=== PATIENT | female | born 1940 | race Hispanic/Latino ===

== ENCOUNTER 2018-05-06 07:58 | Day surgery (SDC) | payer MEDICARE ==
[2016-09-27 06:38] VITALS: BMI 20.7
[2018-05-06] MEDS ORDERED: Propofol 10 mg/ml Inj (20 ML) ONE ×2 (10:06→10:18)
[2018-05-06] MEDS ORDERED: ePHEDrine 50 mg/ml Inj ONE (11:08)
[2018-05-06] MEDS ORDERED: Sodium Chloride 0.9% 1,000 ML IV SCH (11:15)
[2018-05-06 11:51] VITALS: BP 127/56; PULSE 61; RESP 16; TEMP 97.9; O2SAT 99
== END 2018-05-06 12:26 | disposition home or self-care (01) ==
LOC: ENDO 07:58
PROVIDERS: ATTEND Specialist
DX: K63.5 Polyp of colon (principal); K57.30 Diverticulosis of large intestine without perforation or abscess without bleeding; K64.8 Other hemorrhoids
CPT/HCPCS: 45385; 88305; J2704; J3010; J7030; J7040

== ENCOUNTER 2018-11-12 21:22 | Inpatient (IN) | payer MEDICARE ==
[2018-11-12 21:52] VITALS: BMI 20.9
--- NOTE | 2018-11-12 22:28 | ED PDOC ---
Arrival/HPI - General Chief Complaint: Flu-like Symptoms Historian: Patient, Spouse - History of Present Illness Narrative History of Present Illness (Text): 11/12/18 22:28 Elicia Farris is a 78 year old female, whose past medical history includes diabetes, hypertension, cholecystectomy, asthma, and CAD with 2 cardiac stents, who presents to the Emergency department complaining of fever. Patient states she developed a fever tonight with associated lower abdominal pain and nausea. On arrival to Emergency department, patient temperature was 98.8F. Patient notes she was recently seen at her PMD's office for cough and was diagnosed with influenza. Patient denies any chest pain, shortness of breath, vomiting, diarrhea, urinary symptoms, back pain, neck pain, headache, dizziness, or any other complaints. PMD: Dr. Krishnan Symptom Onset: Gradual Symptom Course: Unchanged Activities at Onset: Light Context: Home Past Medical History - Provider Review Nursing Documentation Reviewed: Yes - Past Medical History Past Medical History: No Previous - Cardiac Hx Pacemaker: No - Pulmonary Hx Asthma: Yes - Neurological Hx Paralysis: No - Hematological/Oncological Hx Blood Transfusions: No - Musculoskeletal/Rheumatological Hx Musculoskeletal Disorders: Yes - Psychiatric Hx Emotional Abuse: No Hx Physical Abuse: No Hx Substance Use: No - Surgical History Hx Coronary Stent: Yes (x2) - Anesthesia Hx Anesthesia: Yes Hx Anesthesia Reactions: No Hx Malignant Hyperthermia: No - Suicidal Assessment Feels Threatened In Home Enviroment: No Family/Social History - Physician Review Nursing Documentation Reviewed: Yes Family/Social History: Unknown Family HX Smoking Status: Never Smoked Hx Alcohol Use: No Hx Substance Use: No Hx Substance Use Treatment: No Allergies/Home Meds Allergies/Adverse Reactions: Allergies codeine Allergy (Verified 11/12/18 21:52) RASH Home Medications: Home Meds Medication Instructions Recorded Confirmed Amlodipine Besylate [Norvasc] 5 mg PO QAM 04/23/15 11/12/18 Aspirin [Aspirin Chewable] 81 mg PO DAILY 04/23/15 11/12/18 Atorvastatin [Lipitor] 10 mg PO QPM 04/23/15 11/12/18 Fluticasone/Salmeterol [Advair 1 puff IH BID 04/23/15 11/12/18 500-50 Diskus] Albuterol Sulfate 0.63 mg NEB TID PRN 01/06/16 11/12/18 Furosemide [Lasix] 20 mg PO DAILY PRN 01/06/16 11/12/18 Linaclotide [Linzess] 290 mcg PO DAILY 01/06/16 11/12/18 Omeprazole Magnesium [Prilosec Otc] 20 mg PO DAILY 01/06/16 11/12/18 Bisacodyl [Ducolax] 5 mg PO DAILY PRN 09/27/16 11/12/18 Metoprolol Succinate 12.5 mg PO DAILY 09/27/16 11/12/18 Review of Systems - Physician Review All systems were reviewed & negative as marked: Yes - Review of Systems Constitutional: Fevers Eyes: Normal ENT: Normal Respiratory: Cough Cardiovascular: Normal Gastrointestinal: Abdominal Pain, Nausea. absent: Diarrhea, Vomiting Genitourinary Female: Normal. absent: Dysuria, Frequency, Hematuria, Urine Output Changes Musculoskeletal: Normal. absent: Back Pain, Neck Pain Skin: Normal. absent: Rash Neurological: Normal. absent: Headache, Dizziness Endocrine: Normal Hemo/Lymphatic: Normal Psychiatric: Normal Physical Exam Vital Signs Reviewed: Yes Vital Signs Temp Pulse Resp BP Pulse Ox 11/12/18 21:57 98.8 F 81 18 135/73 96 Temperature: Afebrile Blood Pressure: Normal Pulse: Regular Respiratory Rate: Normal Appearance: Positive for: Well-Appearing, Non-Toxic, Comfortable Pain Distress: None Mental Status: Positive for: Alert and Oriented X 3 - Systems Exam Head: Present: Atraumatic, Normocephalic Pupils: Present: PERRL Extroacular Muscles: Present: EOMI Conjunctiva: Present: Normal Mouth: Present: Moist Mucous Membranes Neck: Present: Normal Range of Motion Respiratory/Chest: Present: Clear to Auscultation, Good Air Exchange. No: Respiratory Distress, Accessory Muscle Use Cardiovascular: Present: Regular Rate and Rhythm, Normal S1, S2. No: Murmurs Abdomen: Present: Tenderness (Diffuse lower abdominal tenderness). No: Distention, Peritoneal Signs Back: Present: Normal Inspection Upper Extremity: Present: Normal Inspection. No: Cyanosis, Edema Lower Extremity: Present: Normal Inspection. No: Edema Neurological: Present: GCS=15, CN II-XII Intact, Speech Normal Skin: Present: Warm, Dry, Normal Color. No: Rashes Psychiatric: Present: Alert, Oriented x 3, Normal Insight, Normal Concentration Medical Decision Making ED Course and Treatment: 11/12/18 22:28 Impression: 78 year old female complaining of fever, abdominal pain, nausea, and cough. Plan: -- CT Abdomen and Pelvis with IV contrast -- EKG -- Chest X-ray -- Labs, cardiac enzymes, lipase -- Reassess and disposition Prior Visits: Notes and results from previous visits were reviewed. Progress Notes: Reviewed EKG, NSR at [address]-segment elevations or depressions, no T-wave inversions, normal intervals. 11/13/18 00:05 Chest X-ray reviewed, shows consolidation vs. atelectasis. 11/13/18 02:06 CT Abdomen and Pelvis reviewed: Interval appearance of diffuse inflammatory thickening of the mid aspect of the sigmoid with associated abnormal enhancement. Mild surrounding inflammatory fat stranding. Findings are suggestive of acute sigmoid diverticulitis. Suspected intramural phlegmon formation at the level of the mid sigmoid inflamed diverticula. No evidence of perforation. Fluid-filled proximal colon. Cholecystectomy. Bilateral basilar atelectatic pulmonary changes. Small sliding hiatal hernia. The liver is of uniform attenuation without mass or defect. There is no intra or extrahepatic biliary ductal dilatation. The spleen is normal. The pancreas is of normal contour and attenuation characteristics. There is no evidence of adrenal mass. Both kidneys demonstrate prompt and equal nephrograms. The kidneys are normal in size, shape and configuration. There is no evidence of renal or ureteral mass. No renal or ureteral calculi are identified. There is no hydroureter or hydronephrosis. No evidence for appendicitis. No evidence for small or large bowel obstruction. There is no evidence of abdominal ascites or lymphadenopathy. There is no evidence of intrinsic or extrinsic bladder mass. There is no pelvic ascites or lymphadenopathy. Images of the lung bases show no evidence of pleural or parenchymal mass. There are no pleural effusions. The bony structures are free of lytic or blastic lesions. IMPRESSION: Interval appearance of diffuse inflammatory thickening of the mid aspect of the sigmoid with associated abnormal enhancement. Mild surrounding inflammatory fat stranding. Findings are suggestive of acute sigmoid diverticulitis. Suspected intramural phlegmon formation at the level of the mid sigmoid inflamed diverticula. No evidence of perforation. Fluid-filled proximal colon. Cholecystectomy. Bilateral basilar atelectatic pulmonary changes. Small sliding hiatal hernia. Electronically signed on Nov 13, 2018 2:04:31 AM EST by: Phan Maher M.D., Certified by ABR, MSK, Neuroradiology 11/13/18 02:[address] Colby Antonio, who is aware and agrees with plan. Accepts pt in to hospitalist service. Pt will be admitted to [facility] for diverticulitis. vice president compliance notified. 11/13/18 03:07 - Lab Interpretations I have reviewed the lab results: Yes - RAD Interpretation Industrial Engineering Director: ED Physician, Radiologist - EKG Interpretation Interpreted by ED Physician: Yes Type: 12 lead EKG - Scribe Statement The provider has reviewed the documentation as recorded by the Veroiblázaro Pitts Provider Scribe Attestation: All medical record entries made by the Scribe were at my direction and personally dictated by me. I have reviewed the chart and agree that the record accurately reflects my personal performance of the history, physical exam, medical decision making, and the department course for this patient. I have also personally directed, reviewed, and agree with the discharge instructions and disposition. Disposition/Present on Arrival - Present on Arrival Any Indicators Present on Arrival: No History of DVT/PE: No History of Uncontrolled Diabetes: No Urinary Catheter: No History of Decub. Ulcer: No History Surgical Site Infection Following: None - Disposition Have Diagnosis and Disposition been Completed?: Yes Diagnosis: Diverticulitis Disposition: HOSPITALIZED Disposition Time: 02:28 Patient Plan: Admission Patient Problems: Current Active Problems Problem Status Onset Diverticulitis Acute Condition: STABLE
[2018-11-12 23:29] LABS: HEMOGLOBIN 11.2 g/dL (12.0-16.0); MEAN CELL VOLUME 89.1 fl (80.0-105.0); MEAN CORPUSCULAR HEMOGLOBIN 30.4 pg (25.0-35.0); MEAN CORPUSCULAR HGB CONC 34.1 g/dl (31.0-37.0); MEAN PLATELET VOLUME 8.2 fl (7.0-11.0); RBC 3.68 10^6/uL (3.5-6.1); RED CELL DISTRIBUTION WIDTH 12.8 % (11.5-14.5); WHITE BLOOD COUNT 6.2 10^3/uL (4.5-11.0)
[2018-11-12 23:46] LABS: ALB/GLOB RATIO 1.2 (1.1-1.8); ALBUMIN 3.5 g/dL (3.0-4.8); ALT/SGPT 33 U/L (7-56); AST/SGOT 31 U/L (14-36); BLOOD UREA NITROGEN 11 mg/dL (7-21); CALCIUM 7.9 mg/dL (8.4-10.5); GFR NON-AFRICAN AMERICAN > 60; LIPASE 97 U/L (23-300)
[2018-11-12] MEDS ORDERED: Iohexol 350 MG/100 ML VIAL ONE (23:54)
[2018-11-12 23:57] LABS: TROPONIN I < 0.01 ng/mL
[2018-11-13] MEDS ORDERED: cefTRIAXone 1 gm 1 GM/100 ML BAG IV STA (02:12)
[2018-11-13] MEDS ORDERED: metroNIDAZOLE IV 500 mg/100 ml 500 MG/100 ML BAG IVPB STA (02:13)
[2018-11-13] MEDS ORDERED: Sodium Chloride 0.9% 1,000 ML IV SCH (03:15)
[2018-11-13] MEDS: Insulin Lispro (humaLOG) LOW Coverage SC SCH ×2 (03:57→09:30)
--- NOTE | 2018-11-13 04:59 | CP.PCM.HP ---
History of Present Illness - History of Present Illness History of Present Illness: Glenn Zamudio, PGY-1 Medicine H&P for Dr. Antonio G: CC: Fever and lower abd pain Pt is a 78 yo F with pmhx of DM, HTN, Asthma and CAD s/p 2 stents who presents to the ED for 2 day hx of fevers and lower abd pain. She states that she noticed the pain begin about 3-4 days ago when she was resting at home and thought that the pain would go away by itself. She then noticed that the pain was worsening and last night she had 5+ bouts of vomiting which was non-bloody, non-bilious. She states that she also noted that the abd pain was getting much worse and was rated at a 9/10 at home before she presented to the ED. She describes the pain as being crampy and without further radiation other than diffuse lower abd pain. Pt reports that this is the first time she has ever had pain like this in the past and has no recollection of diverticulitis episodes in the past. At this time the pt admits to fevers, chills, nausea, vomiting, diffuse lower abd pain, dry cough and dysuria. She denies chest pain, palpitations, SOB, leg swelling, constipation, diarrhea, melena, hematochezia. Pmhx: DM, HTN, Asthma and CAD s/p 2 stents Pshx: Ana All: Codiene - Rash Social: Denies any tobacco use, denies etoh or illicit drug use Fam: Dad: Liver ca, Brother: Ulcers PMD: [facility] Pharm: [facility] Present on Admission - Present on Admission Any Indicators Present on Admission: No Review of Systems - Review of Systems Review of Systems: 12 point ROS was reviewed and negative except for noted in HPI above. Past Patient History - Past Social History Smoking Status: Never Smoked - CARDIAC Hx Pacemaker: No - PULMONARY Hx Asthma: Yes - NEUROLOGICAL Hx Paralysis: No - HEMATOLOGICAL/ONCOLOGICAL Hx Blood Transfusions: No - MUSCULOSKELETAL/RHEUMATOLOGICAL Hx Musculoskeletal Disorders: Yes - PSYCHIATRIC Hx Emotional Abuse: No Hx Physical Abuse: No Hx Substance Use: No - SURGICAL HISTORY Hx Coronary Stent: Yes (x2) - ANESTHESIA Hx Anesthesia: Yes Hx Anesthesia Reactions: No Hx Malignant Hyperthermia: No Meds Allergies/Adverse Reactions: Allergies Allergy/AdvReac Type Severity Reaction Status Date / Time codeine Allergy RASH Verified 11/12/18 21:52 Physical Exam - Constitutional Appears: Well, Non-toxic, No Acute Distress - Head Exam Head Exam: ATRAUMATIC, NORMAL INSPECTION, NORMOCEPHALIC - Eye Exam Eye Exam: EOMI, Normal appearance, PERRL - Respiratory Exam Respiratory Exam: Clear to Auscultation Bilateral, NORMAL BREATHING PATTERN. absent: Accessory Muscle Use, Decreased Breath Sounds, Rales, Rhonchi, Wheezes, Respiratory Distress, Stridor - Cardiovascular Exam Cardiovascular Exam: RRR, +S1, +S2. absent: Gallop, Rubs - GI/Abdominal Exam GI & Abdominal Exam: Hypoactive Bowel Sounds, Tenderness (present diffiusely in lower abdomen, worse in the L than the R). absent: Distended, Firm, Guarding - Extremities Exam Extremities exam: Positive for: normal capillary refill, normal inspection, pedal pulses present. Negative for: pedal edema, tenderness - Back Exam Back exam: NORMAL INSPECTION. absent: CVA tenderness (L), CVA tenderness (R) - Neurological Exam Neurological exam: Alert, Oriented x3 - Psychiatric Exam Psychiatric exam: Normal Affect, Normal Mood - Skin Skin Exam: Dry, Intact, Normal Color Results - Vital Signs Recent Vital Signs: Last Vital Signs Temp 98.8 F 11/12/18 21:57 Pulse 81 11/12/18 21:57 Resp 18 11/12/18 21:57 BP 135/73 11/12/18 21:57 Pulse Ox 96 11/12/18 21:57 - Labs Result Diagrams: 11/12/18 23:15 11/12/18 23:15 Labs: Laboratory Results - last 24 hr 11/12/18 11/12/18 11/12/18 23:15 23:15 23:15 WBC 6.2 RBC 3.68 Hgb 11.2 L Hct 32.8 L MCV 89.1 MCH 30.4 MCHC 34.1 RDW 12.8 Plt Count 193 MPV 8.2 Sodium 124 L Potassium 3.8 Chloride 93 L Carbon Dioxide 25 Anion Gap 10 BUN 11 Creatinine 0.5 L Est GFR ( Amer) > 60 Est GFR (Non-Af Amer) > 60 Random Glucose 117 H Calcium 7.9 L Total Bilirubin 0.5 AST 31 ALT 33 Alkaline Phosphatase 54 Lactate Dehydrogenase 378 Total Creatine Kinase 67 Troponin I < 0.01 Total Protein 6.4 Albumin 3.5 Globulin 2.9 Albumin/Globulin Ratio 1.2 Lipase 97 Influenza Typ A,B (EIA) Negative for flu a/b Assessment & Plan - Assessment and Plan (Free Text) Assessment: Pt is a 78 yo F with pmhx of DM, HTN, Asthma and CAD s/p 2 stents who presents to the ED for 2 day hx of fevers and lower abd pain. CT abd/pelvis done in ED: prelim read showed Interval appearance of diffuse inflammatory thickening of the mid aspect of the sigmoid with associated abnormal enhancement. Mild surrounding inflammatory fat stranding. Findings are suggestive of acute sigmoid diverticulitis. Suspected intramural phlegmon formation at the level of the mid sigmoid inflamed diverticula. No evidence of perforation. Pts VSS and has no acute Plan: 1. Diverticulitis: - CT abd/pelvis: prelim read showed Interval appearance of diffuse inflammatory thickening of the mid aspect of the sigmoid with associated abnormal enhancement. Mild surrounding inflammatory fat stranding. Findings are suggestive of acute sigmoid diverticulitis. Suspected intramural phlegmon formation at the level of the mid sigmoid inflamed diverticula. No evidence of perforation - VSS, no elevated WBC - NPO - IVF NS @ 100/hr - Flagyl - Rocephin - Zofran q6 PRN - f/u blood cultures 2. Hx of HTN: - Cont home toprol 12.5qd and norvasc 3. Hx of CAD s/p 2 stents: - Cont home ASA 4. Hx of HLD: - Cont home lipitor 5. Hx of asthma: - cont home brovana - Duonebs q6 prn - Budesonide 6. PPx: - GI: Protonix 40 IVP - DVT: SCDs
--- NOTE | 2018-11-13 05:40 | CP.PCM.CON ---
History of Present Illness - History of Present Illness History of Present Illness: Surgery Consult Note- Dr. Lancaster Reason for consult: Diverticulitis 78F pmhx significant for DM, HTN, CAD, chronic constipation Anemia w/ Iron infusions, Breast Ca s/p b/l mastectomy presents to [facility] [place] ED w/ sharp, crampy lower abdominal pain localized to the left lower quadrant that started 4 days ago that has been getting progressively worse. Admits associated nausea and non- bloody, non-bilious vomiting yesterday. She has not had any previous episodes of pain like this in the past. ED workup w/ CT scan shows Diverticulitis with phelgmanous changes, no abscess. Surgery was subsequently consulted for diverticulitis. Admits to subjective fevers, and loose bowel movements. denies, changes in urinary habits, foreign travel, chest pain, shortness of breath, blood in stool, bright red blood per rectum. Of note, for chronic constipation patient takes miralax and and oral pill that she cannot remember, and will occasional give herself enemas. Last enema given was 2 days ago. currently passing flatus PMH: DM, HTN, Chronic constipation, Anemia w/ Iron infusions, Asthma, CAD s/p 2 stents PSH: Cholecystectomy, b/l mastectomy, cardiac stents x2 ALL: Codiene - Rash Socialjx: Denies any tobacco, etoh, recreational drug use FH: Dad: Liver ca, Brother: Ulcers PMD: [facility] Review of Systems - Review of Systems All systems: reviewed and no additional remarkable complaints except - Constitutional Constitutional: As Per HPI Past Patient History - Past Social History Smoking Status: Never Smoked - CARDIAC Hx Pacemaker: No - PULMONARY Hx Asthma: Yes - NEUROLOGICAL Hx Paralysis: No - HEMATOLOGICAL/ONCOLOGICAL Hx Blood Transfusions: No - MUSCULOSKELETAL/RHEUMATOLOGICAL Hx Musculoskeletal Disorders: Yes - PSYCHIATRIC Hx Emotional Abuse: No Hx Physical Abuse: No Hx Substance Use: No - SURGICAL HISTORY Hx Coronary Stent: Yes (x2) - ANESTHESIA Hx Anesthesia: Yes Hx Anesthesia Reactions: No Hx Malignant Hyperthermia: No Meds Allergies/Adverse Reactions: Allergies Allergy/AdvReac Type Severity Reaction Status Date / Time codeine Allergy RASH Verified 11/12/18 21:52 - Medications Medications: Current Medications Albuterol/Ipratropium (Duoneb 3 Mg/0.5 Mg (3 Ml) Ud) 3 ml IH Q6H PRN PRN Reason: Shortness of Breath Amlodipine Besylate (Norvasc) 5 mg PO QAM [facility] Arformoterol Tartrate (Brovana) 15 mcg IH [id number] [facility] Aspirin (Aspirin Chewable) 81 mg PO DAILY [facility] Atorvastatin Calcium (Lipitor) 10 mg PO QPM [facility] Budesonide (Pulmicort Respules) 1 mg IH [id number] [facility] Metronidazole (Flagyl) 500 mg in 100 mls @ 100 mls/hr IVPB Q8 [facility]; Protocol Ceftriaxone Sodium (Rocephin 1 Gram Ivpb) 1 gm in 100 mls @ 100 mls/hr IVPB DAILY [facility]; Protocol Sodium Chloride (Sodium Chloride 0.9%) 1,000 mls @ 100 mls/hr IV .Q10H [facility] Last Admin: 11/13/18 03:54 Dose: 100 mls/hr Insulin Human Lispro (Humalog Low) 0 units SC Q6H [facility]; Protocol Last Admin: 11/13/18 03:57 Dose: Not Given Metoprolol Succinate (Toprol Xl) 12.5 mg PO DAILY [facility] Ondansetron HCl (Zofran Inj) 4 mg IVP Q6H PRN PRN Reason: Nausea/Vomiting Pantoprazole Sodium (Protonix Inj) 40 mg IVP DAILY [facility] Physical Exam - Constitutional Appears: Non-toxic, No Acute Distress - Head Exam Head Exam: ATRAUMATIC - Eye Exam Eye Exam: EOMI. absent: Scleral icterus - ENT Exam ENT Exam: Mucous Membranes Moist - Respiratory Exam Respiratory Exam: NORMAL BREATHING PATTERN. absent: Accessory Muscle Use, Respiratory Distress - Cardiovascular Exam Cardiovascular Exam: REGULAR RHYTHM, +S1, +S2. absent: Bradycardia, Tachycardia - GI/Abdominal Exam GI & Abdominal Exam: Soft, Tenderness (Tenderness to deep palpation in LLQ). absent: Distended, Firm, Guarding, Hernia - Rectal Exam Additional comments: Digital Rectal Exam: No stool palpated in rectal vault. External hemorrhoids noted at right posterior. bedside occult blood negative, no edy blood - Extremities Exam Extremities exam: Positive for: normal inspection. Negative for: calf tenderness - Back Exam Additional comments: Chest mastectomy incision C/D/I - Neurological Exam Neurological exam: Alert, Oriented x3 - Psychiatric Exam Psychiatric exam: Normal Affect - Skin Skin Exam: Intact, Warm Results - Vital Signs Recent Vital Signs: Last Vital Signs Temp 98.8 F 11/12/18 21:57 Pulse 81 11/12/18 21:57 Resp 18 11/12/18 21:57 BP 135/73 11/12/18 21:57 Pulse Ox 96 11/12/18 21:57 - Labs Result Diagrams: 11/13/18 06:50 11/13/18 06:50 Labs: Laboratory Results - last 24 hr 11/12/18 11/12/18 11/12/18 23:15 23:15 23:15 WBC 6.2 RBC 3.68 Hgb 11.2 L Hct 32.8 L MCV 89.1 MCH 30.4 MCHC 34.1 RDW 12.8 Plt Count 193 MPV 8.2 Sodium 124 L Potassium 3.8 Chloride 93 L Carbon Dioxide 25 Anion Gap 10 BUN 11 Creatinine 0.5 L Est GFR ( Amer) > 60 Est GFR (Non-Af Amer) > 60 Random Glucose 117 H Calcium 7.9 L Total Bilirubin 0.5 AST 31 ALT 33 Alkaline Phosphatase 54 Lactate Dehydrogenase 378 Total Creatine Kinase 67 Troponin I < 0.01 Total Protein 6.4 Albumin 3.5 Globulin 2.9 Albumin/Globulin Ratio 1.2 Lipase 97 Influenza Typ A,B (EIA) Negative for flu a/b Assessment & Plan - Assessment and Plan (Free Text) Assessment: 78F w/ first episode of sigmoid diverticulitis Plan: - Analgesia PRN - NPO; bowel rest - IVF w/ NS - IVAbx - serial abdominal exams - further recs per Dr. Lancaster Surgical attending [facility] PGY2
[2018-11-13] MEDS: metroNIDAZOLE IV 500 mg/100 ml 500 MG/100 ML BAG IVPB SCH ×3 (06:30→21:26)
[2018-11-13 07:12] LABS: BASO # 0.01 K/mm3 (0.0-2.0); BASO % 0.2 % (0.0-3.0); GRAN # 3.15 (1.4-6.5); GRAN % 69.9 % (50.0-68.0); HEMOGLOBIN 11.5 g/dL (12.0-16.0); LYMPH # 0.7 (1.2-3.4); LYMPH % 15.3 % (22.0-35.0); MEAN CELL VOLUME 88.3 fl (80.0-105.0); MEAN CORPUSCULAR HEMOGLOBIN 29.3 pg (25.0-35.0); MEAN CORPUSCULAR HGB CONC 33.2 g/dl (31.0-37.0); MEAN PLATELET VOLUME 8.2 fl (7.0-11.0); MONO # 0.7 (0.1-0.6); MONO % 14.6 % (1.0-6.0); RBC 3.92 10^6/uL (3.5-6.1); RED CELL DISTRIBUTION WIDTH 12.9 % (11.5-14.5); WHITE BLOOD COUNT 4.5 10^3/uL (4.5-11.0)
[2018-11-13 07:24] LABS: ALB/GLOB RATIO 1.2 (1.1-1.8); ALBUMIN 3.4 g/dL (3.0-4.8); ALT/SGPT 32 U/L (7-56); AST/SGOT 25 U/L (14-36); BLOOD UREA NITROGEN 9 mg/dL (7-21); GFR NON-AFRICAN AMERICAN > 60
[2018-11-13 07:56] LABS: IRON 22 ug/dL (45-180)
[2018-11-13] MEDS ORDERED: Arformoterol 15 mcg/2 ml Inh Sol IH SCH (08:00)
[2018-11-13 08:05] LABS: % IRON SATURATION 10 % (20-55); TOTAL IRON BINDING CAPACITY 231 ug/dL (265-497)
--- NOTE | 2018-11-13 08:19 | CT ---
Date of service: 11/13/2018 PROCEDURE: CT Abdomen and Pelvis with contrast HISTORY: Abdominal pain Relevant medical history: Breast carcinoma. COMPARISON: 10/27/2014 CT abdomen and pelvis. 01/09/2016 abdominal ultrasound TECHNIQUE: Intravenous contrast dose: 100 cc Omnipaque 350 Radiation dose: Total exam DLP = 228.56 mGy-cm. This CT exam was performed using one or more of the following dose reduction techniques: Automated exposure control, adjustment of the mA and/or kV according to patient size, and/or use of iterative reconstruction technique. FINDINGS: LOWER THORAX: Consolidative changes primarily affecting visible right lower lobe. Less pronounced changes likely atelectasis left base. LIVER: Unremarkable. No gross lesion or ductal dilatation. GALLBLADDER AND BILE DUCTS: Status post cholecystectomy. No abnormality is seen in the gallbladder fossa. PANCREAS: Unremarkable. No gross lesion or ductal dilatation. SPLEEN: Unremarkable. ADRENALS: Unremarkable. No mass. KIDNEYS AND URETERS: Unremarkable. No hydronephrosis. No solid mass. VASCULATURE: Unremarkable. No aortic aneurysm. No atherosclerotic calcification or mural plaque present. BOWEL: Segmental inflammatory changes affecting the sigmoid colon, sparing the rectum. The descending colon is also uninvolved. The presence of severe diverticular disease this likely represents acute diverticulitis. Less likely infectious/inflammatory colitis. Right yady colon is fluid-filled. Unremarkable small bowel. APPENDIX: Normal appendix. PERITONEUM: Unremarkable. No free fluid. No free air. LYMPH NODES: Unremarkable. No enlarged lymph nodes. BLADDER: Unremarkable. REPRODUCTIVE: Unremarkable. BONES: No acute fracture. OTHER FINDINGS: None. IMPRESSION: Acute inflammatory changes limited to the sigmoid colon. In the presence of diverticulosis this likely represents acute diverticulitis. Segmental colitis should also be considered. All Additional benign and/or incidental findings described above. Concordant results (preliminary interpretation) provided by [facility]. Procedure Completed: 00:51. Preliminary Report: Dictated and Authenticated: 02:04. Final Interpretation: 08:15.
--- NOTE | 2018-11-13 09:26 | RAD ---
Date of service: 11/12/2018 HISTORY: fever COMPARISON: 01/06/2018 FINDINGS: LUNGS: Linear atelectasis at the right lung base. The lungs are otherwise clear PLEURA: No significant pleural effusion identified, no pneumothorax apparent. CARDIOVASCULAR: No aortic atherosclerotic calcification present. Normal cardiac size. No pulmonary vascular congestion. OSSEOUS STRUCTURES: No significant abnormalities. VISUALIZED UPPER ABDOMEN: Normal. OTHER FINDINGS: None. IMPRESSION: No active disease.
[2018-11-13] MEDS: Metoprolol Succinate 25 mg XL Tab PO SCH (10:06)
[2018-11-13] MEDS: cefTRIAXone 1 gm 1 GM/100 ML BAG IVPB SCH (10:08)
[2018-11-13] MEDS: Dextrose 5%/0.9% NS 1,000 ML IV SCH ×2 (10:10→21:26)
[2018-11-13] MEDS ORDERED: Dextrose 50% SYRINGE Inj (50 ml) IV PRN (11:08)
--- NOTE | 2018-11-13 11:26 | CP.PCM.APN ---
Subjective - Date & Time of Evaluation Date of Evaluation: 11/13/18 Time of Evaluation: 11:15 - Subjective Subjective: Pt seen and examined at bedside. Still c/o abdominal pain, worse on light palpation. Denies nausea, vomiting or diarrhea. Objective - Vital Signs/Intake and Output Vital Signs (last 24 hours): Temp Pulse Resp BP Pulse Ox 100 F H 81 18 134/73 96 11/13/18 06:00 11/13/18 10:07 11/13/18 06:00 11/13/18 10:07 11/13/18 06:00 - Medications Medications: Current Medications Albuterol/Ipratropium (Duoneb 3 Mg/0.5 Mg (3 Ml) Ud) 3 ml IH Q6H PRN PRN Reason: Shortness of Breath Amlodipine Besylate (Norvasc) 5 mg PO QAM [facility] Last Admin: 11/13/18 10:07 Dose: 5 mg Arformoterol Tartrate (Brovana) 15 mcg IH [id number] [facility] Aspirin (Aspirin Chewable) 81 mg PO DAILY [facility] Last Admin: 11/13/18 10:06 Dose: 81 mg Atorvastatin Calcium (Lipitor) 10 mg PO QPM [facility] Budesonide (Pulmicort Respules) 1 mg IH [id number] [facility] Dextrose (Dextrose 50% Inj) 0 ml IV STAT PRN; Protocol PRN Reason: Hypoglycemia Protocol Metronidazole (Flagyl) 500 mg in 100 mls @ 100 mls/hr IVPB Q8 [facility]; Protocol Last Admin: 11/13/18 06:30 Dose: Not Given Ceftriaxone Sodium (Rocephin 1 Gram Ivpb) 1 gm in 100 mls @ 100 mls/hr IVPB DAILY [facility]; Protocol Last Admin: 11/13/18 10:08 Dose: 100 mls/hr Dextrose/Sodium Chloride (Dextrose 5%/0.9% Ns 1000 Ml) 1,000 mls @ 80 mls/hr IV .[id number] [facility] Last Admin: 11/13/18 10:10 Dose: 80 mls/hr Dextrose (Dextrose 5% In Water 1000 Ml) 1,000 mls @ 0 mls/hr IV .Q0M PRN; Protocol PRN Reason: Hypoglycemia Protocol Insulin Human Regular (Humulin R Low) 0 units SC ACHS [facility]; Protocol Metoprolol Succinate (Toprol Xl) 12.5 mg PO DAILY [facility] Last Admin: 11/13/18 10:06 Dose: 12.5 mg Ondansetron HCl (Zofran Inj) 4 mg IVP Q6H PRN PRN Reason: Nausea/Vomiting Pantoprazole Sodium (Protonix Inj) 40 mg IVP DAILY [facility] Last Admin: 11/13/18 10:08 Dose: 40 mg - Labs Labs: 11/13/18 06:50 11/13/18 06:50 - Constitutional Appears: Well, No Acute Distress - Head Exam Head Exam: ATRAUMATIC - Eye Exam Eye Exam: Normal appearance - ENT Exam ENT Exam: Normal Exam - Neck Exam Neck Exam: Full ROM - Respiratory Exam Respiratory Exam: Clear to Ausculation Bilateral, NORMAL BREATHING PATTERN - Cardiovascular Exam Cardiovascular Exam: REGULAR RHYTHM, +S1, +S2 - GI/Abdominal Exam GI & Abdominal Exam: Tenderness - Rectal Exam Rectal Exam: Deferred - Extremities Exam Extremities Exam: Normal Inspection - Neurological Exam Neurological Exam: Alert, Awake, Oriented x3 Assessment and Plan - Assessment and Plan (Free Text) Assessment: pt is a 78 year old female, with pmhx of diabetes, hypertension, cholecy stectomy, asthma, and CAD with 2 cardiac stents who presented to ED c/o fever. Patient states she developed a fever tonight with associated lower abdominal pain and nausea. In ED, her temperature was 98.8. She is currently admitted and being treated for diverticulitis. Impressions Abdomen/Pelvis CT 11/12/18 22:49 IMPRESSION: Acute inflammatory changes limited to the sigmoid colon. In the presence of diverticulosis this likely represents acute diverticulitis. Segmental colitis should also be considered. All Additional benign and/or incidental findings described above. Concordant results (preliminary interpretation) provided by RANDY ARANDA. Procedure Completed: 00:51. Preliminary Report: Dictated and Authenticated: 02:04. Final Interpretation: 08:15. Chest X-Ray 11/12/18 23:02 IMPRESSION: No active disease. Plan: NPO diet Flagyl/Rocephin IV GI, Surgery and ID on consult Meds per MAR Will continue to follow
[2018-11-13] MEDS: Insulin Reg-LOW-Coverage SC SCH ×2 (12:00→17:29)
--- NOTE | 2018-11-13 12:19 | CARD ---
APPROVED REPORT Date of service: 11/12/2018 EKG Measurement Heart [id number] <Conclusion> Normal sinus rhythm Normal ECG
[2018-11-13 13:04] LABS: FOLATE 15.7 ng/mL
[2018-11-13] MEDS: Budesonide 0.5 mg/2 ml Inhal Susp UD IH SCH ×2 (13:53→21:27)
--- NOTE | 2018-11-13 14:08 | CP.PCM.CON ---
History of Present Illness - History of Present Illness History of Present Illness: 78 year old female with PMH of DM, asthma, CAD S/P PCI came in to [facility] complaining of 2 days of fever and chills initially and then last night started having abdominal pain. She also started having nausea and vomiting. She denies diarrhea, no hematochezia or melena. She also denies headache or dizziness, no sore throat, has dry cough, no rhinorrhea, had some body aches, no dysuria, no dysphagia, no chest pain or palpitations, no blurring of vision. Apparently she was seen by a doctor covering for her PMD and was diagnosed to have Influenza. CT A/P done here is showing diverticulitis. Infectious diseases consult is requested to further evaluate and manage. Review of Systems - Review of Systems All systems: reviewed and no additional remarkable complaints except (as per HPI) Past Patient History - Past Social History Smoking Status: Never Smoked - CARDIAC Hx Pacemaker: No - PULMONARY Hx Asthma: Yes - NEUROLOGICAL Hx Paralysis: No - HEMATOLOGICAL/ONCOLOGICAL Hx Blood Transfusions: No - MUSCULOSKELETAL/RHEUMATOLOGICAL Hx Musculoskeletal Disorders: Yes - PSYCHIATRIC Hx Emotional Abuse: No Hx Physical Abuse: No Hx Substance Use: No - SURGICAL HISTORY Hx Coronary Stent: Yes (x2) - ANESTHESIA Hx Anesthesia: Yes Hx Anesthesia Reactions: No Hx Malignant Hyperthermia: No Meds Allergies/Adverse Reactions: Allergies Allergy/AdvReac Type Severity Reaction Status Date / Time codeine Allergy RASH Verified 11/12/18 21:52 - Medications Medications: Current Medications Albuterol/Ipratropium (Duoneb 3 Mg/0.5 Mg (3 Ml) Ud) 3 ml IH Q6H PRN PRN Reason: Shortness of Breath Amlodipine Besylate (Norvasc) 5 mg PO QAM [facility] Last Admin: 11/13/18 10:07 Dose: 5 mg Arformoterol Tartrate (Brovana) 15 mcg IH [id number] [facility] Aspirin (Aspirin Chewable) 81 mg PO DAILY [facility] Last Admin: 11/13/18 10:06 Dose: 81 mg Atorvastatin Calcium (Lipitor) 10 mg PO QPM [facility] Budesonide (Pulmicort Respules) 1 mg IH [id number] [facility] Dextrose (Dextrose 50% Inj) 0 ml IV STAT PRN; Protocol PRN Reason: Hypoglycemia Protocol Metronidazole (Flagyl) 500 mg in 100 mls @ 100 mls/hr IVPB Q8 [facility]; Protocol Last Admin: 11/13/18 06:30 Dose: Not Given Ceftriaxone Sodium (Rocephin 1 Gram Ivpb) 1 gm in 100 mls @ 100 mls/hr IVPB DAILY [facility]; Protocol Last Admin: 11/13/18 10:08 Dose: 100 mls/hr Dextrose/Sodium Chloride (Dextrose 5%/0.9% Ns 1000 Ml) 1,000 mls @ 80 mls/hr IV .[id number] [facility] Last Admin: 11/13/18 10:10 Dose: 80 mls/hr Dextrose (Dextrose 5% In Water 1000 Ml) 1,000 mls @ 0 mls/hr IV .Q0M PRN; Protocol PRN Reason: Hypoglycemia Protocol Insulin Human Regular (Humulin R Low) 0 units SC ACHS [facility]; Protocol Metoprolol Succinate (Toprol Xl) 12.5 mg PO DAILY [facility] Last Admin: 11/13/18 10:06 Dose: 12.5 mg Ondansetron HCl (Zofran Inj) 4 mg IVP Q6H PRN PRN Reason: Nausea/Vomiting Pantoprazole Sodium (Protonix Inj) 40 mg IVP DAILY [facility] Last Admin: 11/13/18 10:08 Dose: 40 mg Physical Exam - Constitutional Appears: No Acute Distress, Chronically Ill - Head Exam Head Exam: NORMAL INSPECTION - ENT Exam ENT Exam: Mucous Membranes Moist - Neck Exam Neck exam: Negative for: Lymphadenopathy, Meningismus - Respiratory Exam Respiratory Exam: Decreased Breath Sounds. absent: Rales - Cardiovascular Exam Cardiovascular Exam: +S1, +S2 - GI/Abdominal Exam GI & Abdominal Exam: Soft, Tenderness (left lower quadrant). absent: Distended, Firm, Guarding, Rebound, Rigid Results - Vital Signs Recent Vital Signs: Last Vital Signs Temp 100 F H 11/13/18 06:00 Pulse 81 11/13/18 10:07 Resp 18 11/13/18 06:00 BP 134/73 11/13/18 10:07 Pulse Ox 96 11/13/18 06:00 - Labs Result Diagrams: 11/13/18 06:50 11/13/18 06:50 Labs: Laboratory Results - last 24 hr 11/12/18 11/12/18 11/12/18 23:15 23:15 23:15 WBC 6.2 RBC 3.68 Hgb 11.2 L Hct 32.8 L MCV 89.1 MCH 30.4 MCHC 34.1 RDW 12.8 Plt Count 193 MPV 8.2 Gran % Lymph % (Auto) Ferry % (Auto) Eos % (Auto) Baso % (Auto) Gran # Lymph # (Auto) Ferry # (Auto) Eos # (Auto) Baso # (Auto) Retic Count Sodium 124 L Potassium 3.8 Chloride 93 L Carbon Dioxide 25 Anion Gap 10 BUN 11 Creatinine 0.5 L Est GFR ( Amer) > 60 Est GFR (Non-Af Amer) > 60 POC Glucose (mg/dL) Random Glucose 117 H Calcium 7.9 L Phosphorus Magnesium Iron TIBC % Saturation Transferrin Ferritin Total Bilirubin 0.5 AST 31 ALT 33 Alkaline Phosphatase 54 Lactate Dehydrogenase 378 Total Creatine Kinase 67 Troponin I < 0.01 Total Protein 6.4 Albumin 3.5 Globulin 2.9 Albumin/Globulin Ratio 1.2 Lipase 97 Influenza Typ A,B (EIA) Negative for flu a/b 11/13/18 11/13/18 11/13/18 03:56 06:50 06:50 WBC RBC Hgb Hct MCV MCH MCHC RDW Plt Count MPV Gran % Lymph % (Auto) Ferry % (Auto) Eos % (Auto) Baso % (Auto) Gran # Lymph # (Auto) Ferry # (Auto) Eos # (Auto) Baso # (Auto) Retic Count Sodium 130 L Potassium 3.7 Chloride 98 Carbon Dioxide 25 Anion Gap 10 BUN 9 Creatinine 0.5 L Est GFR ( Amer) > 60 Est GFR (Non-Af Amer) > 60 POC Glucose (mg/dL) 103 Random Glucose 96 Calcium 8.0 L Phosphorus 2.6 Magnesium 2.2 Iron 22 L TIBC 231 L % Saturation 10 L Transferrin Ferritin 519.0 Total Bilirubin 0.5 AST 25 ALT 32 Alkaline Phosphatase 55 Lactate Dehydrogenase Total Creatine Kinase Troponin I Total Protein 6.4 Albumin 3.4 Globulin 3.0 Albumin/Globulin Ratio 1.2 Lipase Influenza Typ A,B (EIA) 11/13/18 11/13/18 06:50 06:50 WBC 4.5 D RBC 3.92 Hgb 11.5 L Hct 34.6 L MCV 88.3 MCH 29.3 MCHC 33.2 RDW 12.9 Plt Count 193 MPV 8.2 Gran % 69.9 H Lymph % (Auto) 15.3 L Ferry % (Auto) 14.6 H Eos % (Auto) 0.0 L Baso % (Auto) 0.2 Gran # 3.15 Lymph # (Auto) 0.7 L Ferry # (Auto) 0.7 H Eos # (Auto) 0.0 Baso # (Auto) 0.01 Retic Count 0.84 Sodium Potassium Chloride Carbon Dioxide Anion Gap BUN Creatinine Est GFR ( Amer) Est GFR (Non-Af Amer) POC Glucose (mg/dL) Random Glucose Calcium Phosphorus Magnesium Iron TIBC % Saturation Transferrin 162.81 L Ferritin Total Bilirubin AST ALT Alkaline Phosphatase Lactate Dehydrogenase Total Creatine Kinase Troponin I Total Protein Albumin Globulin Albumin/Globulin Ratio Lipase Influenza Typ A,B (EIA) Assessment & Plan - Assessment and Plan (Free Text) Plan: Assessment Sepsis due to acute sigmoid diverticulitis R/O systemic viral illness with Influenza DM asthma CAD S/P PCI Plan started Rocephin and Flagyl and follow up blood cx reviewed CT A/P - monitor clinical response will start Tamiflu to complete 5 days of therapy
--- NOTE | 2018-11-13 15:07 | CON ---
DATE: 11/13/2018 GASTROENTEROLOGY CONSULTATION REQUESTING PHYSICIAN: Allegra Leger MD REASON FOR CONSULTATION: I have been asked to see this 78-year-old female with a known history of breast cancer, diverticulosis, chronic constipation, coronary artery disease, who comes to the hospital with a 4-day history of left lower quadrant abdominal pain. CT scan of the abdomen shows sigmoid diverticulitis. There is no evidence of abscess or fluid collection. The patient did have a fever at home. She also had nausea and vomiting. She denies any pneumaturia. PAST MEDICAL HISTORY: Notable for breast cancer, coronary artery disease status post coronary artery stent placement, chronic anemia, chronic constipation, diabetes mellitus, hypertension. PAST SURGICAL HISTORY: Notable for bilateral mastectomies, cholecystectomy. SOCIAL HISTORY: She denies cigarette smoking or alcohol use. FAMILY HISTORY: Noncontributory. REVIEW OF SYSTEMS: Fourteen-point review of systems is notable for left lower quadrant abdominal pain, nausea, vomiting and fever. PHYSICAL EXAMINATION: GENERAL: Well-developed female, lying in bed, in no acute distress. VITAL SIGNS: Reveal temperature of 100, blood pressure 134/73, heart rate of 81. HEENT: Revealed sclerae to be white. Conjunctivae pink. NECK: Supple. CHEST: Lungs are clear. HEART: Reveals a regular rate and rhythm. ABDOMEN: Soft. There is moderate left lower quadrant tenderness. There is some voluntary guarding. There is no rebound. EXTREMITIES: Show no edema. LABORATORY DATA: Reveal white blood cell count 4.5, hemoglobin 11.5. Chemistries reveal sodium of 130. Iron saturation of 10. AST, ALT, alk phos are all normal. IMPRESSION: A 78-year-old female with coronary artery disease, history of breast cancer status post bilateral mastectomies, diabetes mellitus, chronic constipation with 4 days of left lower quadrant abdominal pain and a CAT scan of the abdomen and pelvis showing sigmoid diverticulitis. RECOMMENDATIONS: 1. Would continue IV Flagyl 500 mg every 8 hours and Rocephin 1 gm IV daily. 2. Continue n.p.o. 3. Can advance to clear-liquid diet if her abdominal pain improves. 4. Surgical evaluation. Pietro Ureña MD
[2018-11-14] MEDS: Insulin Reg-LOW-Coverage SC SCH ×5 (01:09→22:22)
[2018-11-14] MEDS: metroNIDAZOLE IV 500 mg/100 ml 500 MG/100 ML BAG IVPB SCH ×3 (05:44→23:21)
--- NOTE | 2018-11-14 07:16 | CP.PCM.PN ---
Subjective - Date & Time of Evaluation Date of Evaluation: 11/14/18 Time of Evaluation: 06:55 - Subjective Subjective: General Surgery progress note for Dr. Lancaster Patient seen and examined this am at bedside. FRANCY per nursing. Pt states her abd pain is improving somewhat. She states she is thirsty. She otherwise denies JEWELL, CP, SOB, n/v, f/c and extremity pain/weakness. Objective - Vital Signs/Intake and Output Vital Signs (last 24 hours): Temp Pulse Resp BP Pulse Ox 98.4 F 66 20 105/57 L 96 11/13/18 22:00 11/13/18 22:00 11/13/18 22:00 11/13/18 22:00 11/13/18 22:00 - Medications Medications: Current Medications Acetaminophen (Tylenol 325mg Tab) 650 mg PO Q4H PRN PRN Reason: Fever >100.4 F Last Admin: 11/13/18 14:56 Dose: 650 mg Albuterol/Ipratropium (Duoneb 3 Mg/0.5 Mg (3 Ml) Ud) 3 ml IH Q6H PRN PRN Reason: Shortness of Breath Amlodipine Besylate (Norvasc) 5 mg PO QAM [facility] Last Admin: 11/13/18 10:07 Dose: 5 mg Arformoterol Tartrate (Brovana) 15 mcg IH [id number] [facility] Aspirin (Aspirin Chewable) 81 mg PO DAILY [facility] Last Admin: 11/13/18 10:06 Dose: 81 mg Atorvastatin Calcium (Lipitor) 10 mg PO QPM [facility] Last Admin: 11/13/18 17:43 Dose: 10 mg Budesonide (Pulmicort Respules) 1 mg IH [id number] [facility] Last Admin: 11/13/18 21:27 Dose: 1 mg Dextrose (Dextrose 50% Inj) 0 ml IV STAT PRN; Protocol PRN Reason: Hypoglycemia Protocol Metronidazole (Flagyl) 500 mg in 100 mls @ 100 mls/hr IVPB Q8 [facility]; Protocol Last Admin: 11/14/18 05:44 Dose: 100 mls/hr Ceftriaxone Sodium (Rocephin 1 Gram Ivpb) 1 gm in 100 mls @ 100 mls/hr IVPB DAILY [facility]; Protocol Last Admin: 11/13/18 10:08 Dose: 100 mls/hr Dextrose/Sodium Chloride (Dextrose 5%/0.9% Ns 1000 Ml) 1,000 mls @ 80 mls/hr IV .[id number] [facility] Last Admin: 11/13/18 21:26 Dose: 80 mls/hr Dextrose (Dextrose 5% In Water 1000 Ml) 1,000 mls @ 0 mls/hr IV .Q0M PRN; Protocol PRN Reason: Hypoglycemia Protocol Insulin Human Regular (Humulin R Low) 0 units SC ACHS [facility]; Protocol Last Admin: 11/14/18 01:09 Dose: Not Given Metoprolol Succinate (Toprol Xl) 12.5 mg PO DAILY [facility] Last Admin: 11/13/18 10:06 Dose: 12.5 mg Ondansetron HCl (Zofran Inj) 4 mg IVP Q6H PRN PRN Reason: Nausea/Vomiting Last Admin: 11/13/18 19:45 Dose: 4 mg Oseltamivir Phosphate (Tamiflu Cap) 75 mg PO BID [facility]; Protocol Stop: 11/18/18 14:03 Last Admin: 11/13/18 17:43 Dose: 75 mg Pantoprazole Sodium (Protonix Inj) 40 mg IVP DAILY [facility] Last Admin: 11/13/18 10:08 Dose: 40 mg - Labs Labs: 11/13/18 06:50 11/13/18 06:50 - Constitutional Appears: Well, Non-toxic, No Acute Distress - Head Exam Head Exam: ATRAUMATIC, NORMOCEPHALIC - Eye Exam Eye Exam: EOMI - ENT Exam ENT Exam: Mucous Membranes Moist - Respiratory Exam Respiratory Exam: NORMAL BREATHING PATTERN - Cardiovascular Exam Cardiovascular Exam: REGULAR RHYTHM - GI/Abdominal Exam GI & Abdominal Exam: Guarding, Soft, Tenderness (RLQ, LLQ). absent: Distended - Extremities Exam Extremities Exam: absent: Calf Tenderness, Pedal Edema - Neurological Exam Neurological Exam: Alert, Awake, Oriented x3 - Psychiatric Exam Psychiatric exam: Normal Affect, Normal Mood - Skin Skin Exam: Dry, Intact, Normal Color, Warm Assessment and Plan - Assessment and Plan (Free Text) Assessment: 78 F with Diverticulitis Plan: - Analgesia PRN - trial of clear liquids this am - IVF w/ NS - IV Abx - serial abdominal exams - further recs per Dr. Lancaster Surgical attending Lore Lees, PGY 1
[2018-11-14 08:18] LABS: GRAN # 1.34 (1.4-6.5); GRAN % 54.9 % (50.0-68.0); HEMOGLOBIN 10.7 g/dL (12.0-16.0); LYMPH # 0.7 (1.2-3.4); LYMPH % 27.5 % (22.0-35.0); MEAN CELL VOLUME 89.4 fl (80.0-105.0); MEAN CORPUSCULAR HEMOGLOBIN 29.7 pg (25.0-35.0); MEAN CORPUSCULAR HGB CONC 33.2 g/dl (31.0-37.0); MEAN PLATELET VOLUME 8.6 fl (7.0-11.0); MONO # 0.4 (0.1-0.6); MONO % 17.6 % (1.0-6.0); RBC 3.6 10^6/uL (3.5-6.1); WHITE BLOOD COUNT 2.4 10^3/uL (4.5-11.0)
[2018-11-14 08:34] LABS: ALB/GLOB RATIO 1.1 (1.1-1.8); ALT/SGPT 32 U/L (7-56); AST/SGOT 34 U/L (14-36); BLOOD UREA NITROGEN 10 mg/dL (7-21); CALCIUM 7.2 mg/dL (8.4-10.5); GFR NON-AFRICAN AMERICAN > 60; HDL CHOLESTEROL 28 mg/dL (29-60)
[2018-11-14 08:44] LABS: LDL CHOLESTEROL 50 mg/dL (0-129)
[2018-11-14] MEDS: Albuterol-Ipratrop 3 mg / 0.5 (3 ml) UD IH PRN (09:30)
[2018-11-14] MEDS: Budesonide 0.5 mg/2 ml Inhal Susp UD IH SCH ×2 (09:30→20:30)
[2018-11-14] MEDS: Metoprolol Succinate 25 mg XL Tab PO SCH (10:22)
[2018-11-14] MEDS: cefTRIAXone 1 gm 1 GM/100 ML BAG IVPB SCH (10:22)
--- NOTE | 2018-11-14 12:58 | PN ---
DATE: 11/14/2019 SUBJECTIVE: The patient is in bed in no acute distress, nontoxic, no fevers and chills. The patient is seen earlier today. PHYSICAL EXAMINATION: VITAL SIGNS: On exam, temperature is 99.4 and T-max yesterday was 101. HEENT: Unremarkable. NECK: Supple. LUNGS: Have decreased breath sounds. HEART: Normal S1 and S2. ABDOMEN: Soft and nontender. LABORATORY DATA: Reveals the patient's white count is 3.4. Chemistries is are noted and influenza is negative. Microbiology reveals the blood cultures are negative and urine cultures are negative. CAT scan of the abdomen and pelvis was done which showed acute inflammatory change in sigmoid colon, acute diverticulitis. ASSESSMENT AND PLAN: This is a 78-year-old female with history of diabetes, coronary artery disease, asthma history of percutaneous coronary intervention, complaining of fevers and chills and with sepsis with acute sigmoid diverticulitis. Currently on ceftriaxone and Flagyl, responding. Fever is down. Review of orders are noted and the cultures reveals to be negative blood and negative urine. Appears to be improving. We will follow with you. Sly Yuen MD
[2018-11-14] MEDS: Dextrose 5%/0.9% NS 1,000 ML IV SCH ×2 (13:12→23:55)
--- NOTE | 2018-11-14 15:34 | CP.PCM.PN ---
<[place] - Last Filed: 11/14/18 18:14> Subjective - Date & Time of Evaluation Date of Evaluation: 11/14/18 Time of Evaluation: 11:13 - Subjective Subjective: [place] PGY1 Hospital Progress Note Patient seen and examined at bedside this morning. No acute events reported overnight. Afebrile overnight. Abdominal pain improved today, will advance diet as tolerated. Offers no new complaints today. Objective - Vital Signs/Intake and Output Vital Signs (last 24 hours): Temp Pulse Resp BP Pulse Ox 99.7 F H 71 20 126/56 L 93 L 11/14/18 14:32 11/14/18 14:32 11/14/18 14:32 11/14/18 14:32 11/14/18 14:32 Intake and Output: 11/14/18 11/14/18 06:59 18:59 Intake Total 620 Balance 620 - Medications Medications: Current Medications Acetaminophen (Tylenol 325mg Tab) 650 mg PO Q4H PRN PRN Reason: Fever >100.4 F Last Admin: 11/13/18 14:56 Dose: 650 mg Albuterol/Ipratropium (Duoneb 3 Mg/0.5 Mg (3 Ml) Ud) 3 ml IH Q6H PRN PRN Reason: Shortness of Breath Last Admin: 11/14/18 09:30 Dose: 3 ml Amlodipine Besylate (Norvasc) 5 mg PO QAM [facility] Last Admin: 11/14/18 10:21 Dose: 5 mg Arformoterol Tartrate (Brovana) 15 mcg IH [id number] [facility] Aspirin (Aspirin Chewable) 81 mg PO DAILY [facility] Last Admin: 11/14/18 10:21 Dose: 81 mg Atorvastatin Calcium (Lipitor) 10 mg PO QPM [facility] Last Admin: 11/13/18 17:43 Dose: 10 mg Benzonatate (Tessalon Perles) 100 mg PO TID PRN PRN Reason: Cough Last Admin: 11/14/18 15:01 Dose: 100 mg Budesonide (Pulmicort Respules) 1 mg IH [id number] [facility] Last Admin: 11/14/18 09:30 Dose: 1 mg Dextrose (Dextrose 50% Inj) 0 ml IV STAT PRN; Protocol PRN Reason: Hypoglycemia Protocol Metronidazole (Flagyl) 500 mg in 100 mls @ 100 mls/hr IVPB Q8 [facility]; Protocol Last Admin: 11/14/18 13:09 Dose: 100 mls/hr Ceftriaxone Sodium (Rocephin 1 Gram Ivpb) 1 gm in 100 mls @ 100 mls/hr IVPB DAILY [facility]; Protocol Last Admin: 11/14/18 10:22 Dose: 100 mls/hr Dextrose/Sodium Chloride (Dextrose 5%/0.9% Ns 1000 Ml) 1,000 mls @ 80 mls/hr IV .[id number] [facility] Last Admin: 11/14/18 13:12 Dose: 80 mls/hr Dextrose (Dextrose 5% In Water 1000 Ml) 1,000 mls @ 0 mls/hr IV .Q0M PRN; Protocol PRN Reason: Hypoglycemia Protocol Insulin Human Regular (Humulin R Low) 0 units SC ACHS [facility]; Protocol Last Admin: 11/14/18 12:27 Dose: Not Given Metoprolol Succinate (Toprol Xl) 12.5 mg PO DAILY [facility] Last Admin: 11/14/18 10:22 Dose: 12.5 mg Ondansetron HCl (Zofran Inj) 4 mg IVP Q6H PRN PRN Reason: Nausea/Vomiting Last Admin: 11/13/18 19:45 Dose: 4 mg Oseltamivir Phosphate (Tamiflu Cap) 75 mg PO BID [facility]; Protocol Stop: 11/18/18 14:03 Last Admin: 11/14/18 10:21 Dose: 75 mg Pantoprazole Sodium (Protonix Inj) 40 mg IVP DAILY [facility] Last Admin: 11/14/18 10:21 Dose: 40 mg - Labs Labs: 11/14/18 07:30 11/14/18 07:30 - Additional Findings Additional findings: - Constitutional Appears: Well, Non-toxic, No Acute Distress - Head Exam Head Exam: ATRAUMATIC, NORMAL INSPECTION, NORMOCEPHALIC - Eye Exam Eye Exam: EOMI, Normal appearance, PERRL - Respiratory Exam Respiratory Exam: Clear to Auscultation Bilateral, NORMAL BREATHING PATTERN. absent: Accessory Muscle Use, Decreased Breath Sounds, Rales, Rhonchi, Wheezes, Respiratory Distress, Stridor - Cardiovascular Exam Cardiovascular Exam: regular rhythm +S1, +S2. absent: systolic murmur - GI/Abdominal Exam GI & Abdominal Exam: LLQ abdominal tenderness to deep palpation. Booker, obturator and rovsing sign's are negative absent: Distended, Firm, Guarding - Extremities Exam Extremities exam: Positive for: normal capillary refill, normal inspection, ped al pulses present. Negative for: pedal edema, tenderness - Back Exam Back exam: NORMAL INSPECTION. absent: CVA tenderness (L), CVA tenderness (R) - Neurological Exam Neurological exam: Alert, Oriented x3 - Skin Skin Exam: Dry, Intact, Normal Color Assessment and Plan - Assessment and Plan (Free Text) Assessment: Pt is a 78 yo F with pmhx of DM, HTN, Asthma and CAD s/p 2 stents who presents to the ED for 2 day hx of fevers and lower abd pain. CT abd/pelvis done in ED: prelim read showed Interval appearance of diffuse inflammatory thickening of the mid aspect of the sigmoid with associated abnormal enhancement. Mild surrounding inflammatory fat stranding. Findings are suggestive of acute sigmoid divertic ulitis. Suspected intramural phlegmon formation at the level of the mid sigmoid inflamed diverticula. No evidence of perforation. Pts VSS and has no acute Plan: Diverticulitis -CTAP 11/13 shows acute inflammatory changes limited to sigmoid colon, possible diverticulitis -afebrile, WBC is 2.4 -liquid diet today, will advance as tolerated -dextros 5%/0.9% NS at 80 cc/hr -flagyl and rocephin day 2 -zofran prn -blood cx neg 24 hours Hypokalemia -repleted, f/u AM Hypocalcemia -corrected Ca is 8 -repleted with oral calcium, f/u AM -IV calcium gluconate and IV rocephin may have side effect of forming kidney stones if given together within 48 hours Hx of HTN -Cont home norvasc, metoprolol Hx of CAD s/p 2 stents -home ASA Hx of HLD -home lipitor Hx of asthma -brovana -Duonebs prn -Budesonide PPX/Diet -protonix and SCD -liquid diet Patient seen and case discussed with attending, Dr. Gifford <Elissa Gifford - Last Filed: 11/14/18 18:23> Objective - Vital Signs/Intake and Output Vital Signs (last 24 hours): Temp Pulse Resp BP Pulse Ox 99.7 F H 71 20 126/56 L 93 L 11/14/18 14:32 11/14/18 14:32 11/14/18 14:32 11/14/18 14:32 11/14/18 14:32 Intake and Output: 11/14/18 11/14/18 06:59 18:59 Intake Total 620 Balance 620 - Medications Medications: Current Medications Acetaminophen (Tylenol 325mg Tab) 650 mg PO Q4H PRN PRN Reason: Fever >100.4 F Last Admin: 11/13/18 14:56 Dose: 650 mg Albuterol/Ipratropium (Duoneb 3 Mg/0.5 Mg (3 Ml) Ud) 3 ml IH Q6H PRN PRN Reason: Shortness of Breath Last Admin: 11/14/18 09:30 Dose: 3 ml Amlodipine Besylate (Norvasc) 5 mg PO QAM [facility] Last Admin: 11/14/18 10:21 Dose: 5 mg Arformoterol Tartrate (Brovana) 15 mcg IH [id number] [facility] Aspirin (Aspirin Chewable) 81 mg PO DAILY [facility] Last Admin: 11/14/18 10:21 Dose: 81 mg Atorvastatin Calcium (Lipitor) 10 mg PO QPM [facility] Last Admin: 11/14/18 17:39 Dose: 10 mg Benzonatate (Tessalon Perles) 100 mg PO TID PRN PRN Reason: Cough Last Admin: 11/14/18 15:01 Dose: 100 mg Budesonide (Pulmicort Respules) 1 mg IH [id number] [facility] Last Admin: 11/14/18 09:30 Dose: 1 mg Calcium/Vitamin D (Oscal-D 250 Mg-125 Units Tab) 1 tab PO DAILY [facility] Last Admin: 11/14/18 18:10 Dose: 1 tab Dextrose (Dextrose 50% Inj) 0 ml IV STAT PRN; Protocol PRN Reason: Hypoglycemia Protocol Metronidazole (Flagyl) 500 mg in 100 mls @ 100 mls/hr IVPB Q8 [facility]; Protocol Last Admin: 11/14/18 13:09 Dose: 100 mls/hr Ceftriaxone Sodium (Rocephin 1 Gram Ivpb) 1 gm in 100 mls @ 100 mls/hr IVPB [facility]; Protocol Last Admin: 11/14/18 10:22 Dose: 100 mls/hr Dextrose/Sodium Chloride (Dextrose 5%/0.9% Ns 1000 Ml) 1,000 mls @ 80 mls/hr IV .[id number] [facility] Last Admin: 11/14/18 13:12 Dose: 80 mls/hr Dextrose (Dextrose 5% In Water 1000 Ml) 1,000 mls @ 0 mls/hr IV .Q0M PRN; Protocol PRN Reason: Hypoglycemia Protocol Potassium Chloride (Potassium Chloride 10 Meq/100 Ml) 10 meq in 100 mls @ 50 mls/hr IVPB ONCE ONE Stop: 11/14/18 18:46 Last Admin: 11/14/18 17:39 Dose: 50 mls/hr Insulin Human Regular (Humulin R Low) 0 units SC ACHS [facility]; Protocol Last Admin: 11/14/18 16:30 Dose: Not Given Metoprolol Succinate (Toprol Xl) 12.5 mg PO DAILY [facility] Last Admin: 11/14/18 10:22 Dose: 12.5 mg Ondansetron HCl (Zofran Inj) 4 mg IVP Q6H PRN PRN Reason: Nausea/Vomiting Last Admin: 11/13/18 19:45 Dose: 4 mg Oseltamivir Phosphate (Tamiflu Cap) 75 mg PO BID [facility]; Protocol Stop: 11/18/18 14:03 Last Admin: 11/14/18 17:39 Dose: 75 mg Pantoprazole Sodium (Protonix Inj) 40 mg IVP DAILY [facility] Last Admin: 11/14/18 10:21 Dose: 40 mg - Labs Labs: 11/14/18 07:30 11/14/18 07:30 Attending/Attestation - Attestation I have personally seen and examined this patient.: Yes I have fully participated in the care of the patient.: Yes I have reviewed all pertinent clinical information, including history, physical exam and plan: Yes Notes (Text): 11/14/18 18:21 78 year old female with past medical history of diabetes, hypertension, asthma and CAD s/p stents who presented with complaint of lower abdominal pain found to have acute sigmoid diverticulitis. Surgery and GI are following. Continue with iv fluids, analgesics and antibiotics. Advance diet as tolerated. Will replete and repeat potassium. Elissa Gifford MD Hospitalist.
[2018-11-14] MEDS ORDERED: Potassium Chloride 20 mEq ER Tab PO STA (16:47)
[2018-11-14] MEDS: Calcium-Vit D 250 mg-125 Units Tab UD PO SCH (18:10)
[2018-11-14] MEDS: Arformoterol 15 mcg/2 ml Inh Sol IH SCH (20:30)
[2018-11-15] MEDS: Dextrose 5%/0.9% NS 1,000 ML IV SCH (03:00)
[2018-11-15] MEDS: metroNIDAZOLE IV 500 mg/100 ml 500 MG/100 ML BAG IVPB SCH ×2 (06:20→13:24)
[2018-11-15 07:48] LABS: BASO # 0.01 K/mm3 (0.0-2.0); BASO % 0.3 % (0.0-3.0); GRAN % 56.6 % (50.0-68.0); HEMOGLOBIN 10.7 g/dL (12.0-16.0); LYMPH # 1.1 (1.2-3.4); LYMPH % 30.6 % (22.0-35.0); MEAN CELL VOLUME 88.5 fl (80.0-105.0); MEAN CORPUSCULAR HEMOGLOBIN 30.1 pg (25.0-35.0); MEAN PLATELET VOLUME 8.3 fl (7.0-11.0); MONO # 0.4 (0.1-0.6); MONO % 12.5 % (1.0-6.0); RBC 3.56 10^6/uL (3.5-6.1); RED CELL DISTRIBUTION WIDTH 13.1 % (11.5-14.5); WHITE BLOOD COUNT 3.5 10^3/uL (4.5-11.0)
[2018-11-15] MEDS: Insulin Reg-LOW-Coverage SC SCH ×4 (08:08→22:41)
[2018-11-15 08:15] LABS: ALBUMIN 2.7 g/dL (3.0-4.8); ALT/SGPT 39 U/L (7-56); AST/SGOT 37 U/L (14-36); BLOOD UREA NITROGEN 4 mg/dL (7-21); CALCIUM 7.1 mg/dL (8.4-10.5); GFR NON-AFRICAN AMERICAN > 60
[2018-11-15] MEDS ORDERED: Magnesium Hydroxide Susp 30 ml UD PO PRN (08:24)
[2018-11-15] MEDS: Albuterol-Ipratrop 3 mg / 0.5 (3 ml) UD IH PRN ×2 (08:41→19:50)
[2018-11-15] MEDS: Arformoterol 15 mcg/2 ml Inh Sol IH SCH ×2 (08:41→19:49)
[2018-11-15] MEDS: Budesonide 0.5 mg/2 ml Inhal Susp UD IH SCH ×2 (08:42→19:49)
--- NOTE | 2018-11-15 09:20 | CP.PCM.PN ---
Subjective - Date & Time of Evaluation Date of Evaluation: 11/15/18 Time of Evaluation: 07:20 - Subjective Subjective: Surgery progress note for Dr. Lancaster Pt seen and examined this AM. No adverse events overnight. Patient denies any nausea, vomiting, or abdominal pain. States she tolerated her CLD and is ambulating and passing gas Objective - Vital Signs/Intake and Output Vital Signs (last 24 hours): Temp Pulse Resp BP Pulse Ox 98.4 F 77 18 143/74 95 11/15/18 06:00 11/15/18 06:00 11/15/18 06:00 11/15/18 06:00 11/15/18 06:00 - Medications Medications: Current Medications Acetaminophen (Tylenol 325mg Tab) 650 mg PO Q4H PRN PRN Reason: Fever >100.4 F Last Admin: 11/15/18 06:29 Dose: 650 mg Albuterol/Ipratropium (Duoneb 3 Mg/0.5 Mg (3 Ml) Ud) 3 ml IH Q6H PRN PRN Reason: Shortness of Breath Last Admin: 11/15/18 08:41 Dose: 3 ml Amlodipine Besylate (Norvasc) 5 mg PO QAM [facility] Last Admin: 11/14/18 10:21 Dose: 5 mg Arformoterol Tartrate (Brovana) 15 mcg IH [id number] [facility] Last Admin: 11/15/18 08:41 Dose: 15 mcg Aspirin (Aspirin Chewable) 81 mg PO DAILY [facility] Last Admin: 11/14/18 10:21 Dose: 81 mg Atorvastatin Calcium (Lipitor) 10 mg PO QPM [facility] Last Admin: 11/14/18 17:39 Dose: 10 mg Benzonatate (Tessalon Perles) 100 mg PO TID PRN PRN Reason: Cough Last Admin: 11/14/18 15:01 Dose: 100 mg Budesonide (Pulmicort Respules) 1 mg IH [id number] [facility] Last Admin: 11/15/18 08:42 Dose: 1 mg Calcium/Vitamin D (Oscal-D 250 Mg-125 Units Tab) 1 tab PO DAILY [facility] Last Admin: 11/14/18 18:10 Dose: 1 tab Dextrose (Dextrose 50% Inj) 0 ml IV STAT PRN; Protocol PRN Reason: Hypoglycemia Protocol Metronidazole (Flagyl) 500 mg in 100 mls @ 100 mls/hr IVPB Q8 [facility]; Protocol Last Admin: 11/15/18 06:20 Dose: 100 mls/hr Ceftriaxone Sodium (Rocephin 1 Gram Ivpb) 1 gm in 100 mls @ 100 mls/hr IVPB DAILY [facility]; Protocol Last Admin: 11/14/18 10:22 Dose: 100 mls/hr Dextrose/Sodium Chloride (Dextrose 5%/0.9% Ns 1000 Ml) 1,000 mls @ 80 mls/hr IV .[id number] [facility] Last Admin: 11/15/18 03:00 Dose: 80 mls/hr Dextrose (Dextrose 5% In Water 1000 Ml) 1,000 mls @ 0 mls/hr IV .Q0M PRN; Protocol PRN Reason: Hypoglycemia Protocol Insulin Human Regular (Humulin R Low) 0 units SC ACHS [facility]; Protocol Last Admin: 11/15/18 08:08 Dose: Not Given Magnesium Hydroxide (Milk Of Magnesia) 30 ml PO DAILY PRN PRN Reason: Constipation Metoprolol Succinate (Toprol Xl) 12.5 mg PO DAILY [facility] Last Admin: 11/14/18 10:22 Dose: 12.5 mg Ondansetron HCl (Zofran Inj) 4 mg IVP Q6H PRN PRN Reason: Nausea/Vomiting Last Admin: 11/13/18 19:45 Dose: 4 mg Oseltamivir Phosphate (Tamiflu Cap) 75 mg PO BID [facility]; Protocol Stop: 11/18/18 14:03 Last Admin: 11/14/18 17:39 Dose: 75 mg Pantoprazole Sodium (Protonix Inj) 40 mg IVP DAILY [facility] Last Admin: 11/14/18 10:21 Dose: 40 mg - Labs Labs: 11/15/18 07:00 11/15/18 07:00 - Constitutional Appears: Well, Non-toxic, No Acute Distress - Head Exam Head Exam: ATRAUMATIC, NORMOCEPHALIC - Eye Exam Eye Exam: Normal appearance. absent: Conjunctival injection, Scleral icterus - ENT Exam ENT Exam: Mucous Membranes Moist, Normal Oropharynx - Respiratory Exam Respiratory Exam: NORMAL BREATHING PATTERN. absent: Accessory Muscle Use, Respiratory Distress - Cardiovascular Exam Cardiovascular Exam: RRR - GI/Abdominal Exam GI & Abdominal Exam: Soft. absent: Distended, Tenderness - Extremities Exam Extremities Exam: absent: Calf Tenderness, Pedal Edema, Tenderness - Neurological Exam Neurological Exam: Alert, Awake, Oriented x3 - Psychiatric Exam Psychiatric exam: Normal Affect, Normal Mood - Skin Skin Exam: Dry, Normal Color, Warm Assessment and Plan - Assessment and Plan (Free Text) Assessment: 78F with acute diverticulitis, improving Plan: Continue to monitor daily labs--replete electrolytes as needed May consider advancing to FLD Continue to monitor bowel function Antibiotics per ID F/u GI recs Likely no surgical intervention at this time--once diverticulitis resolves should follow up with GI as outpatient for possible colonoscopy and with Dr. Lancaster after the colonoscopy Discussed with Dr. Tonny Stafford, PGY2
[2018-11-15] MEDS: Metoprolol Succinate 25 mg XL Tab PO SCH (09:27)
[2018-11-15] MEDS: Calcium-Vit D 250 mg-125 Units Tab UD PO SCH (09:27)
[2018-11-15] MEDS: cefTRIAXone 1 gm 1 GM/100 ML BAG IVPB SCH (09:28)
[2018-11-15] MEDS: Potassium Phosphate 30 MMOLE in Dextrose 5%/0.9% NS 1,000 ML IV SCH ×2 (10:56→23:01)
[2018-11-15] MEDS ORDERED: Potassium Chloride 20 mEq ER Tab PO STA (12:54)
--- NOTE | 2018-11-15 12:56 | CP.PCM.PN ---
<[place] - Last Filed: 11/15/18 12:49> Subjective - Date & Time of Evaluation Date of Evaluation: 11/15/18 Time of Evaluation: 09:33 - Subjective Subjective: [place] Y1 Hospital Progress Note Patient seen and examined at bedside this morning. No acute events reported overnight. Abdominal pain improved and WBC is uptrending. Will give colace and miralax for constipation and advance diet as tolerated. Offers no new complaints today. Objective - Vital Signs/Intake and Output Vital Signs (last 24 hours): Temp Pulse Resp BP Pulse Ox 98.4 F 77 18 143/74 95 11/15/18 06:00 11/15/18 09:28 11/15/18 06:00 11/15/18 09:28 11/15/18 06:00 - Medications Medications: Current Medications Acetaminophen (Tylenol 325mg Tab) 650 mg PO Q4H PRN PRN Reason: Fever >100.4 F Last Admin: 11/15/18 06:29 Dose: 650 mg Albuterol/Ipratropium (Duoneb 3 Mg/0.5 Mg (3 Ml) Ud) 3 ml IH Q6H PRN PRN Reason: Shortness of Breath Last Admin: 11/15/18 08:41 Dose: 3 ml Amlodipine Besylate (Norvasc) 5 mg PO QAM [facility] Last Admin: 11/15/18 09:28 Dose: 5 mg Arformoterol Tartrate (Brovana) 15 mcg IH [id number] [facility] Last Admin: 11/15/18 08:41 Dose: 15 mcg Aspirin (Aspirin Chewable) 81 mg PO DAILY [facility] Last Admin: 11/15/18 10:26 Dose: 81 mg Atorvastatin Calcium (Lipitor) 10 mg PO QPM [facility] Last Admin: 11/14/18 17:39 Dose: 10 mg Benzonatate (Tessalon Perles) 100 mg PO TID PRN PRN Reason: Cough Last Admin: 11/14/18 15:01 Dose: 100 mg Budesonide (Pulmicort Respules) 1 mg IH [id number] [facility] Last Admin: 11/15/18 08:42 Dose: 1 mg Calcium/Vitamin D (Oscal-D 250 Mg-125 Units Tab) 1 tab PO DAILY [facility] Last Admin: 11/15/18 09:27 Dose: 1 tab Dextrose (Dextrose 50% Inj) 0 ml IV STAT PRN; Protocol PRN Reason: Hypoglycemia Protocol Docusate Sodium (Colace) 100 mg PO DAILY [facility] Metronidazole (Flagyl) 500 mg in 100 mls @ 100 mls/hr IVPB Q8 [facility]; Protocol Last Admin: 11/15/18 06:20 Dose: 100 mls/hr Ceftriaxone Sodium (Rocephin 1 Gram Ivpb) 1 gm in 100 mls @ 100 mls/hr IVPB DAILY [facility]; Protocol Last Admin: 11/15/18 09:28 Dose: 100 mls/hr Dextrose (Dextrose 5% In Water 1000 Ml) 1,000 mls @ 0 mls/hr IV .Q0M PRN; Protocol PRN Reason: Hypoglycemia Protocol Potassium Phosphate 30 mmole/ (Dextrose/Sodium Chloride) 1,010 mls @ 80 mls/hr IV .[id number] [facility] Last Admin: 11/15/18 10:56 Dose: 80 mls/hr Insulin Human Regular (Humulin R Low) 0 units SC ACHS [facility]; Protocol Last Admin: 11/15/18 08:08 Dose: Not Given Magnesium Hydroxide (Milk Of Magnesia) 30 ml PO DAILY PRN PRN Reason: Constipation Metoprolol Succinate (Toprol Xl) 12.5 mg PO DAILY [facility] Last Admin: 11/15/18 09:27 Dose: 12.5 mg Ondansetron HCl (Zofran Inj) 4 mg IVP Q6H PRN PRN Reason: Nausea/Vomiting Last Admin: 11/13/18 19:45 Dose: 4 mg Oseltamivir Phosphate (Tamiflu Cap) 75 mg PO BID [facility]; Protocol Stop: 11/18/18 14:03 Last Admin: 11/15/18 09:27 Dose: 75 mg Pantoprazole Sodium (Protonix Inj) 40 mg IVP DAILY [facility] Last Admin: 11/15/18 09:27 Dose: 40 mg Polyethylene Glycol (Miralax) 17 gm PO DAILY [facility] - Labs Labs: 11/15/18 07:00 11/15/18 07:00 - Additional Findings Additional findings: - Constitutional Appears: Well, Non-toxic, No Acute Distress - Head Exam Head Exam: ATRAUMATIC, NORMAL INSPECTION, NORMOCEPHALIC - Eye Exam Eye Exam: EOMI, Normal appearance, PERRL - Respiratory Exam Respiratory Exam: Clear to Auscultation Bilateral, NORMAL BREATHING PATTERN. absent: Accessory Muscle Use, Decreased Breath Sounds, Rales, Rhonchi, Wheezes, Respiratory Distress, Stridor - Cardiovascular Exam Cardiovascular Exam: regular rhythm +S1, +S2. absent: systolic murmur - GI/Abdominal Exam GI & Abdominal Exam: LLQ abdominal tenderness to deep palpation. Booker, obturator and rovsing sign's are negative absent: Distended, Firm, Guarding - Extremities Exam Extremities exam: Positive for: normal capillary refill, normal inspection, pedal pulses present. Negative for: pedal edema, tenderness - Back Exam Back exam: NORMAL INSPECTION. absent: CVA tenderness (L), CVA tenderness (R) - Neurological Exam Neurological exam: Alert, Oriented x3 - Skin Skin Exam: Dry, Intact, Normal Color Assessment and Plan - Assessment and Plan (Free Text) Assessment: Pt is a 78 yo F with pmhx of DM, HTN, Asthma and CAD s/p 2 stents who presents to the ED for 2 day hx of fevers and lower abd pain. CT abd/pelvis done in ED: prelim read showed Interval appearance of diffuse inflammatory thickening of the mid aspect of the sigmoid with associated abnormal enhancement. Mild surrounding inflammatory fat stranding. Findings are suggestive of acute sigmoid diverticulitis. Suspected intramural phlegmon formation at the level of the mid sigmoid inflamed diverticula. No evidence of perforation. Plan: Diverticulitis -CTAP 11/13 shows acute inflammatory changes limited to sigmoid colon, possible diverticulitis -afebrile, WBC is 3.5 from 2.4 today. -full liquid diet today, advance tomorrow if tolerated -dextros 5%/0.9% NS at 80 cc/hr -flagyl and rocephin day 3 -zofran prn -blood cx neg 24 hours -colace/miralax for constipation Questionable Flu -flu negative in hospital -testes positive in PCP office -day 3 out of 5 for tamilfu Hypokalemia -repleted, f/u AM Hypocalcemia -corrected Ca is 8.1 today -repleted with oral calcium, f/u AM -IV calcium gluconate and IV rocephin may have side effect of forming kidney stones if given together within 48 hours Hx of HTN -Cont home norvasc, metoprolol Hx of CAD s/p 2 stents -home ASA Hx of HLD -home lipitor Hx of asthma -brovana, duonebs prn, budesonide PPX/Diet -protonix and SCD -full liquid diet Patient seen and case discussed with attending, Dr. Gifford <Elissa Gifford - Last Filed: 11/15/18 14:27> Objective - Vital Signs/Intake and Output Vital Signs (last 24 hours): Temp Pulse Resp BP Pulse Ox 98.4 F 63 20 161/56 H 98 11/15/18 14:16 11/15/18 14:16 11/15/18 14:16 11/15/18 14:16 11/15/18 14:16 Intake and Output: 11/15/18 11/15/18 06:59 18:59 Intake Total 620 Balance 620 - Medications Medications: Current Medications Acetaminophen (Tylenol 325mg Tab) 650 mg PO Q4H PRN PRN Reason: Fever >100.4 F Last Admin: 11/15/18 06:29 Dose: 650 mg Albuterol/Ipratropium (Duoneb 3 Mg/0.5 Mg (3 Ml) Ud) 3 ml IH Q6H PRN PRN Reason: Shortness of Breath Last Admin: 11/15/18 08:41 Dose: 3 ml Amlodipine Besylate (Norvasc) 5 mg PO QAM [facility] Last Admin: 11/15/18 09:28 Dose: 5 mg Amoxicillin/Clavulanate Potassium (Augmentin 875 Mg-125 Mg Tab) 1 tab PO Q12 [facility]; Protocol Stop: 11/25/18 13:51 Arformoterol Tartrate (Brovana) 15 mcg IH [id number] [facility] Last Admin: 11/15/18 08:41 Dose: 15 mcg Aspirin (Aspirin Chewable) 81 mg PO DAILY [facility] Last Admin: 11/15/18 10:26 Dose: 81 mg Atorvastatin Calcium (Lipitor) 10 mg PO QPM [facility] Last Admin: 11/14/18 17:39 Dose: 10 mg Benzonatate (Tessalon Perles) 100 mg PO TID PRN PRN Reason: Cough Last Admin: 11/14/18 15:01 Dose: 100 mg Budesonide (Pulmicort Respules) 1 mg IH [id number] [facility] Last Admin: 11/15/18 08:42 Dose: 1 mg Calcium/Vitamin D (Oscal-D 250 Mg-125 Units Tab) 1 tab PO DAILY [facility] Last Admin: 11/15/18 09:27 Dose: 1 tab Dextrose (Dextrose 50% Inj) 0 ml IV STAT PRN; Protocol PRN Reason: Hypoglycemia Protocol Docusate Sodium (Colace) 100 mg PO DAILY [facility] Last Admin: 11/15/18 13:23 Dose: 100 mg Dextrose (Dextrose 5% In Water 1000 Ml) 1,000 mls @ 0 mls/hr IV .Q0M PRN; Protocol PRN Reason: Hypoglycemia Protocol Potassium Phosphate 30 mmole/ (Dextrose/Sodium Chloride) 1,010 mls @ 80 mls/hr IV .[id number] [facility] Last Admin: 11/15/18 10:56 Dose: 80 mls/hr Insulin Human Regular (Humulin R Low) 0 units SC ACHS [facility]; Protocol Last Admin: 11/15/18 13:00 Dose: Not Given Magnesium Hydroxide (Milk Of Magnesia) 30 ml PO DAILY PRN PRN Reason: Constipation Metoprolol Succinate (Toprol Xl) 12.5 mg PO DAILY [facility] Last Admin: 11/15/18 09:27 Dose: 12.5 mg Ondansetron HCl (Zofran Inj) 4 mg IVP Q6H PRN PRN Reason: Nausea/Vomiting Last Admin: 11/13/18 19:45 Dose: 4 mg Oseltamivir Phosphate (Tamiflu Cap) 75 mg PO BID [facility]; Protocol Stop: 11/18/18 14:03 Last Admin: 11/15/18 09:27 Dose: 75 mg Pantoprazole Sodium (Protonix Inj) 40 mg IVP DAILY [facility] Last Admin: 11/15/18 09:27 Dose: 40 mg Polyethylene Glycol (Miralax) 17 gm PO DAILY [facility] Last Admin: 11/15/18 13:23 Dose: 17 gm - Labs Labs: 11/15/18 07:00 11/15/18 07:00 Attending/Attestation - Attestation I have personally seen and examined this patient.: Yes I have fully participated in the care of the patient.: Yes I have reviewed all pertinent clinical information, including history, physical exam and plan: Yes Notes (Text): 11/15/18 14:21 78 year old female with past medical history of diabetes, hypertension, asthma and CAD s/p stents who presented with complaint of lower abdominal pain found to have acute sigmoid diverticulitis. Surgery and GI are following. Continue with iv fluids, analgesics and antibiotics. Will advance diet to full liquids today as symptoms are slowly improving. Will replete and repeat potassium and phosphorous. Possible d/c planning tomorrow if patient is tolerating diet. Elissa Gifford MD Hospitalist.
[2018-11-15] MEDS: POLYETHYLENE GLYCOL 3350 17 GM/Dose PACKET PO SCH (13:23)
--- NOTE | 2018-11-15 13:31 | CP.PCM.PCO ---
Physician Communication Note - Physician Communication Note Physician Communication Note: Much improved/Full liquids now
[2018-11-15] MEDS: Amoxicillin-Clav 875-125 mg Tab PO SCH ×2 (17:09→22:30)
--- NOTE | 2018-11-15 17:50 | PN ---
DATE: 11/15/2018 SUBJECTIVE: The patient is in bed in no acute distress, nontoxic. PHYSICAL EXAMINATION: VITAL SIGNS: Temperature is 99, blood pressure is 140/70, respiratory rate of 18, heart rate of 77. HEENT: Examination is unremarkable. NECK: Supple. LUNGS: Have decreased breath sounds. HEART: Normal S1, S2. ABDOMEN: Soft. LABORATORY DATA: Examination reveals the patient's white count of 3.5, hemoglobin of 10, platelets of 170. Chemistries are noted. Serologies, influenza is negative. Microbiology reveals the blood cultures are negative. Urine cultures are negative. MEDICATIONS: Review of orders reveals the patient to be on Flagyl, ceftriaxone, and Tamiflu. ASSESSMENT AND PLAN: A 78-year-old female who has history of diabetes, hypertension, coronary artery disease, has asthma, and admitted with acute sigmoid diverticulitis. The patient is complaining of nausea today, I believe it is from the Flagyl. We will discontinue the Flagyl. The patient had a positive influenza test in the office. Today is day #3 of Tamiflu, complete five days of Tamiflu. We will discontinue the Flagyl and ceftriaxone, may use p.o. Augmentin. The patient is tolerating. Abdominal pain is much improved. We will treat with Augmentin 875 p.o. b.i.d. x10 days. Complete five days of Tamiflu. Sly Yuen MD
--- NOTE | 2018-11-16 07:04 | CP.PCM.PN ---
Subjective - Date & Time of Evaluation Date of Evaluation: 11/16/18 Time of Evaluation: 07:04 - Subjective Subjective: Resident Progress Note for Hospitalist Service Objective - Vital Signs/Intake and Output Vital Signs (last 24 hours): Temp Pulse Resp BP Pulse Ox 98.4 F 75 20 161/67 H 97 11/15/18 21:32 11/15/18 21:32 11/15/18 21:32 11/15/18 21:32 11/15/18 21:32 - Medications Medications: Current Medications Acetaminophen (Tylenol 325mg Tab) 650 mg PO Q4H PRN PRN Reason: Fever >100.4 F Last Admin: 11/15/18 06:29 Dose: 650 mg Albuterol/Ipratropium (Duoneb 3 Mg/0.5 Mg (3 Ml) Ud) 3 ml IH Q6H PRN PRN Reason: Shortness of Breath Last Admin: 11/15/18 19:50 Dose: 3 ml Amlodipine Besylate (Norvasc) 5 mg PO QAM [facility] Last Admin: 11/15/18 09:28 Dose: 5 mg Amoxicillin/Clavulanate Potassium (Augmentin 875 Mg-125 Mg Tab) 1 tab PO Q12 [facility]; Protocol Stop: 11/25/18 13:51 Last Admin: 11/15/18 22:30 Dose: 1 tab Arformoterol Tartrate (Brovana) 15 mcg IH [id number] [facility] Last Admin: 11/15/18 19:49 Dose: 15 mcg Aspirin (Aspirin Chewable) 81 mg PO DAILY [facility] Last Admin: 11/15/18 10:26 Dose: 81 mg Atorvastatin Calcium (Lipitor) 10 mg PO QPM [facility] Last Admin: 11/15/18 17:09 Dose: 10 mg Benzonatate (Tessalon Perles) 100 mg PO TID PRN PRN Reason: Cough Last Admin: 11/14/18 15:01 Dose: 100 mg Budesonide (Pulmicort Respules) 1 mg IH [id number] [facility] Last Admin: 11/15/18 19:49 Dose: 1 mg Calcium/Vitamin D (Oscal-D 250 Mg-125 Units Tab) 1 tab PO DAILY [facility] Last Admin: 11/15/18 09:27 Dose: 1 tab Dextrose (Dextrose 50% Inj) 0 ml IV STAT PRN; Protocol PRN Reason: Hypoglycemia Protocol Docusate Sodium (Colace) 100 mg PO DAILY [facility] Last Admin: 11/15/18 13:23 Dose: 100 mg Dextrose (Dextrose 5% In Water 1000 Ml) 1,000 mls @ 0 mls/hr IV .Q0M PRN; Protocol PRN Reason: Hypoglycemia Protocol Potassium Phosphate 30 mmole/ (Dextrose/Sodium Chloride) 1,010 mls @ 80 mls/hr IV .[id number] [facility] Last Admin: 11/15/18 23:01 Dose: 80 mls/hr Insulin Human Regular (Humulin R Low) 0 units SC ACHS [facility]; Protocol Last Admin: 11/15/18 22:41 Dose: Not Given Magnesium Hydroxide (Milk Of Magnesia) 30 ml PO DAILY PRN PRN Reason: Constipation Last Admin: 11/15/18 17:10 Dose: 30 ml Metoprolol Succinate (Toprol Xl) 12.5 mg PO DAILY [facility] Last Admin: 11/15/18 09:27 Dose: 12.5 mg Ondansetron HCl (Zofran Inj) 4 mg IVP Q6H PRN PRN Reason: Nausea/Vomiting Last Admin: 11/13/18 19:45 Dose: 4 mg Oseltamivir Phosphate (Tamiflu Cap) 75 mg PO BID [facility]; Protocol Stop: 11/18/18 14:03 Last Admin: 11/15/18 17:10 Dose: 75 mg Pantoprazole Sodium (Protonix Inj) 40 mg IVP DAILY [facility] Last Admin: 11/15/18 09:27 Dose: 40 mg Polyethylene Glycol (Miralax) 17 gm PO DAILY [facility] Last Admin: 11/15/18 13:23 Dose: 17 gm - Labs Labs: 11/15/18 07:00 11/15/18 07:00
[2018-11-16] MEDS: Arformoterol 15 mcg/2 ml Inh Sol IH SCH (07:27)
[2018-11-16] MEDS: Budesonide 0.5 mg/2 ml Inhal Susp UD IH SCH (07:28)
[2018-11-16] MEDS: Albuterol-Ipratrop 3 mg / 0.5 (3 ml) UD IH PRN (07:28)
[2018-11-16] MEDS: Insulin Reg-LOW-Coverage SC SCH ×2 (07:30→11:30)
[2018-11-16 07:53] LABS: EOS % 0.3 % (1.5-5.0); GRAN # 1.81 (1.4-6.5); GRAN % 53.2 % (50.0-68.0); HEMOGLOBIN 11.5 g/dL (12.0-16.0); LYMPH % 30.6 % (22.0-35.0); MEAN CORPUSCULAR HEMOGLOBIN 29.4 pg (25.0-35.0); MEAN CORPUSCULAR HGB CONC 33.4 g/dl (31.0-37.0); MEAN PLATELET VOLUME 8.3 fl (7.0-11.0); MONO # 0.5 (0.1-0.6); MONO % 15.9 % (1.0-6.0); RBC 3.91 10^6/uL (3.5-6.1); RED CELL DISTRIBUTION WIDTH 13.1 % (11.5-14.5); WHITE BLOOD COUNT 3.4 10^3/uL (4.5-11.0)
[2018-11-16 08:00] VITALS: PULSE 66; RESP 18; TEMP 95.7; O2SAT 100
[2018-11-16 08:14] LABS: ALB/GLOB RATIO 1.1 (1.1-1.8); ALBUMIN 3.4 g/dL (3.0-4.8); ALT/SGPT 38 U/L (7-56); AST/SGOT 41 U/L (14-36); BLOOD UREA NITROGEN 3 mg/dL (7-21); CALCIUM 7.9 mg/dL (8.4-10.5); GFR NON-AFRICAN AMERICAN > 60
[2018-11-16] MEDS: Metoprolol Succinate 25 mg XL Tab PO SCH (09:29)
[2018-11-16] MEDS: Amoxicillin-Clav 875-125 mg Tab PO SCH (09:29)
[2018-11-16] MEDS: POLYETHYLENE GLYCOL 3350 17 GM/Dose PACKET PO SCH (09:34)
[2018-11-16] MEDS: Calcium-Vit D 250 mg-125 Units Tab UD PO SCH (09:34)
[2018-11-16 09:36] VITALS: BP 150/80
--- NOTE | 2018-11-16 09:39 | CP.PCM.PN ---
Subjective - Date & Time of Evaluation Date of Evaluation: 11/16/18 Time of Evaluation: 07:36 - Subjective Subjective: PGY-1 Sara Rae D.O. Surgery progress note for Dr. Lancaster: Patient was seen and examined this morning. She states that she is feeling much better. She is complaining of generalized weakness. She is tolerating PO full liquids and would like to try to advance her diet. She is ambulating without issues. She denies abdominal pain, nausea, vomiting. Denies fevers and chills. She denies diarrhea and constipation. Objective - Vital Signs/Intake and Output Vital Signs (last 24 hours): Temp Pulse Resp BP Pulse Ox 95.7 F L 66 18 150/80 100 11/16/18 06:00 11/16/18 09:29 11/16/18 06:00 11/16/18 09:29 11/16/18 06:00 Intake and Output: 11/16/18 11/16/18 06:59 18:59 Intake Total 960 Balance 960 - Medications Medications: Current Medications Acetaminophen (Tylenol 325mg Tab) 650 mg PO Q4H PRN PRN Reason: Fever >100.4 F Last Admin: 11/15/18 06:29 Dose: 650 mg Albuterol/Ipratropium (Duoneb 3 Mg/0.5 Mg (3 Ml) Ud) 3 ml IH Q6H PRN PRN Reason: Shortness of Breath Last Admin: 11/16/18 07:28 Dose: 3 ml Amlodipine Besylate (Norvasc) 5 mg PO QAM [facility] Last Admin: 11/16/18 09:29 Dose: 5 mg Amoxicillin/Clavulanate Potassium (Augmentin 875 Mg-125 Mg Tab) 1 tab PO Q12 [facility]; Protocol Stop: 11/25/18 13:51 Last Admin: 11/16/18 09:29 Dose: 1 tab Arformoterol Tartrate (Brovana) 15 mcg IH [id number] [facility] Last Admin: 11/16/18 07:27 Dose: 15 mcg Aspirin (Aspirin Chewable) 81 mg PO DAILY [facility] Last Admin: 11/16/18 09:33 Dose: 81 mg Atorvastatin Calcium (Lipitor) 10 mg PO QPM [facility] Last Admin: 11/15/18 17:09 Dose: 10 mg Benzonatate (Tessalon Perles) 100 mg PO TID PRN PRN Reason: Cough Last Admin: 11/14/18 15:01 Dose: 100 mg Budesonide (Pulmicort Respules) 1 mg IH [id number] [facility] Last Admin: 11/16/18 07:28 Dose: 1 mg Calcium/Vitamin D (Oscal-D 250 Mg-125 Units Tab) 1 tab PO DAILY [facility] Last Admin: 11/16/18 09:34 Dose: 1 tab Dextrose (Dextrose 50% Inj) 0 ml IV STAT PRN; Protocol PRN Reason: Hypoglycemia Protocol Docusate Sodium (Colace) 100 mg PO DAILY [facility] Last Admin: 11/16/18 09:33 Dose: 100 mg Dextrose (Dextrose 5% In Water 1000 Ml) 1,000 mls @ 0 mls/hr IV .Q0M PRN; Protocol PRN Reason: Hypoglycemia Protocol Potassium Phosphate 30 mmole/ (Dextrose/Sodium Chloride) 1,010 mls @ 80 mls/hr IV .[id number] [facility] Last Admin: 11/15/18 23:01 Dose: 80 mls/hr Insulin Human Regular (Humulin R Low) 0 units SC ACHS [facility]; Protocol Last Admin: 11/16/18 07:30 Dose: Not Given Magnesium Hydroxide (Milk Of Magnesia) 30 ml PO DAILY PRN PRN Reason: Constipation Last Admin: 11/15/18 17:10 Dose: 30 ml Metoprolol Succinate (Toprol Xl) 12.5 mg PO DAILY [facility] Last Admin: 11/16/18 09:29 Dose: 12.5 mg Ondansetron HCl (Zofran Inj) 4 mg IVP Q6H PRN PRN Reason: Nausea/Vomiting Last Admin: 11/13/18 19:45 Dose: 4 mg Oseltamivir Phosphate (Tamiflu Cap) 75 mg PO BID [facility]; Protocol Stop: 11/18/18 14:03 Last Admin: 11/16/18 09:28 Dose: 75 mg Pantoprazole Sodium (Protonix Inj) 40 mg IVP DAILY [facility] Last Admin: 11/16/18 09:29 Dose: 40 mg Polyethylene Glycol (Miralax) 17 gm PO DAILY [facility] Last Admin: 11/16/18 09:34 Dose: 17 gm - Labs Labs: 11/16/18 07:20 11/16/18 07:20 - Constitutional Appears: Non-toxic, No Acute Distress - Head Exam Head Exam: ATRAUMATIC, NORMAL INSPECTION - Eye Exam Eye Exam: EOMI, Normal appearance - ENT Exam ENT Exam: Mucous Membranes Moist - Neck Exam Neck Exam: Normal Inspection - Respiratory Exam Respiratory Exam: NORMAL BREATHING PATTERN. absent: Accessory Muscle Use, Respiratory Distress Additional comments: O2 via nasal cannula @ 2L - Cardiovascular Exam Cardiovascular Exam: REGULAR RHYTHM - GI/Abdominal Exam GI & Abdominal Exam: Soft. absent: Distended, Tenderness - Neurological Exam Neurological Exam: Alert, Awake, CN II-XII Intact, Oriented x3 - Psychiatric Exam Psychiatric exam: Normal Affect, Normal Mood - Skin Skin Exam: Dry, Intact, Normal Color, Warm Assessment and Plan - Assessment and Plan (Free Text) Assessment: 78F with diverticulitis (1st case) Plan: - No surgical intervention at this time - Advance diet as tolerated - Monitor bowel function - Blood Cx no growth >3 days - Continue antibiotics per ID - Colonoscopy as outpatient Case was discussed with attending, Dr. Lancaster.
--- NOTE | 2018-11-16 12:40 | PN ---
DATE: 11/16/2018 SUBJECTIVE: The patient is lying in bed. She feels much better. Her left lower quadrant abdominal pain has almost resolved. She is tolerating a full liquid diet. PHYSICAL EXAMINATION: VITAL SIGNS: Temperature 95.7, blood pressure 150/80, heart rate 66. HEENT: Reveal sclerae to be white. Conjunctivae pink. NECK: Supple. CHEST AND LUNGS: Clear. HEART: Reveals regular rate and rhythm. ABDOMEN: Soft, nontender, no guarding. EXTREMITIES: Show no edema. LABORATORY DATA: Reveal white blood cell count 3.4, hemoglobin 11.5. Chemistries reveal BUN 3, creatinine 0.4. AST, ALT, alk phos were all normal. IMPRESSION: Sigmoid diverticulitis, clinically improving. RECOMMENDATIONS: 1. Continue antibiotics. 2. Advance to a low-residue diet. I have reviewed a low-residue diet with the patient and her . The patient did have a colonoscopy several years ago. Pietro Ureña MD
--- NOTE | 2018-11-16 13:03 | CP.PCM.DIS ---
<GrahamRomain L - Last Filed: 11/16/18 16:37> Provider - Provider Date of Admission: 11/13/18 02:26 Attending physician: Elissa Gifford MD Primary care physician: Pietro Krishnan MD Consults: 11/13/18 02:59 Gastroenterology Consult Routine Comment: Consulting Provider: Pietro Ureña Consulting Physician: Pietro Ureña Reason for Consult: diverticulitis 11/13/18 03:11 General Surgery Consult Routine Comment: Consulting Provider: Ivan Lancaster Consulting Physician: Ivan Lancaster Reason for Consult: diverticulitis 11/13/18 11:06 Physician Consult Routine Comment: Consulting Provider: Darion Joseph Consulting Physician: Darion Joseph Reason for Consult: negative flu- droplet precautions in place Additional Comments: Pt states she had positive rapid flu outpatient and received Tamiflu. Pt adm rapid flu was negative but was put in dropplet precautions Time Spent in preparation of Discharge (in minutes): 35 Diagnosis - Discharge Diagnosis (1) Diverticulitis Status: Resolved Hospital Course - Lab Results Lab Results: Micro Results 11/13/18 01:50 Blood Blood Culture - Preliminary NO GROWTH AFTER 3 DAYS 11/13/18 01:30 Blood Blood Culture - Preliminary NO GROWTH AFTER 3 DAYS 11/13/18 03:37 Urine Urine Culture - Final No Growth (<1,000 CFU/ML) Most Recent Lab Values WBC 3.4 10^3/uL (4.5-11.0) L 11/16/18 07:20 RBC 3.91 10^6/uL (3.5-6.1) 11/16/18 07:20 Hgb 11.5 g/dL (12.0-16.0) L 11/16/18 07:20 Hct 34.4 % (36.0-48.0) L 11/16/18 07:20 MCV 88.0 fl (80.0-105.0) 11/16/18 07:20 MCH 29.4 pg (25.0-35.0) 11/16/18 07:20 MCHC 33.4 g/dl (31.0-37.0) 11/16/18 07:20 RDW 13.1 % (11.5-14.5) 11/16/18 07:20 Plt Count 202 10^3/uL (120.0-450.0) 11/16/18 07:20 MPV 8.3 fl (7.0-11.0) 11/16/18 07:20 Gran % 53.2 % (50.0-68.0) 11/16/18 07:20 Lymph % (Auto) 30.6 % (22.0-35.0) 11/16/18 07:20 [place] % (Auto) 15.9 % (1.0-6.0) H 11/16/18 07:20 Eos % (Auto) 0.3 % (1.5-5.0) L 11/16/18 07:20 Baso % (Auto) 0.0 % (0.0-3.0) 11/16/18 07:20 Gran # 1.81 (1.4-6.5) 11/16/18 07:20 Lymph # (Auto) 1.0 (1.2-3.4) L 11/16/18 07:20 [place] # (Auto) 0.5 (0.1-0.6) 11/16/18 07:20 Eos # (Auto) 0.0 (0.0-0.7) 11/16/18 07:20 Baso # (Auto) 0.00 K/mm3 (0.0-2.0) 11/16/18 07:20 Retic Count 0.84 % (0.5-1.5) 11/13/18 06:50 Sodium 135 mmol/L (132-148) 11/16/18 07:20 Potassium 3.7 mmol/L (3.6-5.0) 11/16/18 07:20 Chloride 106 mmol/L (98-107) 11/16/18 07:20 Carbon Dioxide 24 mmol/L (21-33) 11/16/18 07:20 Anion Gap 9 (10-20) L 11/16/18 07:20 BUN 3 mg/dL (7-21) L 11/16/18 07:20 Creatinine 0.4 mg/dl (0.7-1.2) L 11/16/18 07:20 Est GFR ( Amer) > 60 11/16/18 07:20 Est GFR (Non-Af Amer) > 60 11/16/18 07:20 POC Glucose (mg/dL) 103 mg/dL (65-110) 11/16/18 11:00 Random Glucose 100 mg/dL (70-110) 11/16/18 07:20 Hemoglobin A1c 5.8 % (4.2-6.5) 11/14/18 07:30 Calcium 7.9 mg/dL (8.4-10.5) L 11/16/18 07:20 Phosphorus 3.3 mg/dL (2.5-4.5) 11/16/18 07:20 Magnesium 2.1 mg/dL (1.7-2.2) 11/16/18 07:20 Iron 22 ug/dL (45-180) L 11/13/18 06:50 TIBC 231 ug/dL (265-497) L 11/13/18 06:50 % Saturation 10 % (20-55) L 11/13/18 06:50 Transferrin 162.81 mg/dL (206-381) L 11/13/18 06:50 Ferritin 519.0 ng/mL 11/13/18 06:50 Total Bilirubin 0.4 mg/dL (0.2-1.3) 11/16/18 07:20 AST 41 U/L (14-36) H 11/16/18 07:20 ALT 38 U/L (7-56) 11/16/18 07:20 Alkaline Phosphatase 56 U/L (38-126) 11/16/18 07:20 Lactate Dehydrogenase 378 U/L (333-699) 11/12/18 23:15 Total Creatine Kinase 67 U/L (35-230) 11/12/18 23:15 Troponin I < 0.01 ng/mL 11/12/18 23:15 Total Protein 6.4 g/dL (5.8-8.3) 11/16/18 07:20 Albumin 3.4 g/dL (3.0-4.8) 11/16/18 07:20 Globulin 3.0 gm/dL 11/16/18 07:20 Albumin/Globulin Ratio 1.1 (1.1-1.8) 11/16/18 07:20 Triglycerides 98 mg/dL (35-160) 11/14/18 07:30 Cholesterol 95 mg/dL (130-200) L 11/14/18 07:30 LDL Cholesterol Direct 50 mg/dL (0-129) 11/14/18 07:30 HDL Cholesterol 28 mg/dL (29-60) L 11/14/18 07:30 Lipase 97 U/L (23-300) 11/12/18 23:15 Vitamin B12 596 pg/mL (239-931) 11/13/18 06:50 Folate 15.7 ng/mL 11/13/18 06:50 Influenza Typ A,B (EIA) Negative for flu a/b (NEGATIVE) 11/12/18 23:15 - Hospital Course Hospital Course: On admission: Pt is a 78 yo F with pmhx of DM, HTN, Asthma and CAD s/p 2 stents who presents to the ED for 2 day hx of fevers and lower abd pain. She states that she noticed the pain begin about 3-4 days ago when she was resting at home and thought that the pain would go away by itself. She then noticed that the pain was worsening and last night she had 5+ bouts of vomiting which was non- bloody, non-bilious. She states that she also noted that the abd pain was getting much worse and was rated at a 9/10 at home before she presented to the ED. She describes the pain as being crampy and without further radiation other than diffuse lower abd pain. Pt reports that this is the first time she has ever had pain like this in the past and has no recollection of diverticulitis episodes in the past. At this time the pt admits to fevers, chills, nausea, vomiting, diffuse lower abd pain, dry cough and dysuria. She denies chest pain, palpitations, SOB, leg swelling, constipation, diarrhea, melena, hematochezia. During hospital stay: CT abd/pelvis done in ED showed interval appearance of diffuse inflammatory thickening of the mid aspect of the sigmoid with associated abnormal enhancement. Mild surrounding inflammatory fat stranding. Findings are suggestive of acute sigmoid diverticulitis. Suspected intramural phlegmon formation at the level of the mid sigmoid inflamed diverticula. No evidence of perforation. Patient was admitted and started on flagyl and rocephin. Blood cultures were done which were negative. Patient also had tested flu positive in clinic prior to hospital admission and so was placed on droplet precautions. Surgery and GI were consulted. Conservative medical mangement was recommended. ID was also consulted. Patient clinically improved, leukocytosis downtrended. Patient was advanced to clear liquid diet, then full liquids and soft diet which she tolerated well with no nausea and vomiting. Patient was optimized for discharge and provided prescriptions for Tamiflu and Augmentin. Please see EMR for full summary. - Date & Time of H&P Date of H&P: 11/13/18 Time of H&P: 04:50 Discharge Exam - Additional Findings Additional findings: - Constitutional Appears: Well, Non-toxic, No Acute Distress - Head Exam Head Exam: ATRAUMATIC, NORMAL INSPECTION, NORMOCEPHALIC - Eye Exam Eye Exam: EOMI, Normal appearance, PERRL - Respiratory Exam Respiratory Exam: Clear to Auscultation Bilateral, NORMAL BREATHING PATTERN. absent: Accessory Muscle Use, Decreased Breath Sounds, Rales, - Cardiovascular Exam Cardiovascular Exam: regular rhythm +S1, +S2. absent: systolic murmur - GI/Abdominal Exam GI & Abdominal Exam: Soft, Bowel Sounds present absent: Distended, Firm, Guarding, Tenderness - Extremities Exam Extremities exam: Positive for: normal capillary refill, normal inspection, pedal pulses present. Negative for: pedal edema, tenderness - Back Exam Back exam: NORMAL INSPECTION. absent: CVA tenderness (L), CVA tenderness (R) - Neurological Exam Neurological exam: Alert, Oriented x3 - Skin Skin Exam: Dry, Intact, Normal Color Discharge Plan - Discharge Medications Prescriptions: Amoxicillin/Clavulanate [Augmentin 875 MG-125 MG Tab] 1 tab PO Q12 10 Days tab Oseltamivir Cap [Tamiflu Cap] 75 mg PO BID 2 Days capsule - Follow Up Plan Condition: STABLE Disposition: HOME/ ROUTINE Patient education suggested?: Yes Instructions: Quitting Smoking for Older Adults, Low Fiber Diet, Diverticulitis (DC), Flu Vaccine Additional Instructions: Please follow up with your primary medical doctor Dr. Krishnan within one week. Also follow up with international trade teacher Dr. Ureña within one weeks. You have been given prescriptions for Tamiflu and Augmentin. Please take these medications as prescribed. Also take an over the counter probiotic. Also resume your home medications. Return to ED if symptoms return or worsen. Referrals: Pietro Krishnan MD [Primary Care Provider] - <Elissa Gifford - Last Filed: 11/16/18 18:26> Provider - Provider Date of Admission: 11/13/18 02:26 Attending physician: Elissa Gifford MD Primary care physician: Pietro Krishnan MD Consults: 11/13/18 02:59 Gastroenterology Consult Routine Comment: Consulting Provider: Pietro Ureña Consulting Physician: Pietro Ureña Reason for Consult: diverticulitis 11/13/18 03:11 General Surgery Consult Routine Comment: Consulting Provider: Ivan Lancaster Consulting Physician: Ivan Lancaster Reason for Consult: diverticulitis 11/13/18 11:06 Physician Consult Routine Comment: Consulting Provider: Darion Joseph Consulting Physician: Darion Joseph Reason for Consult: negative flu- droplet precautions in place Additional Comments: Pt states she had positive rapid flu outpatient and received Tamiflu. Pt adm rapid flu was negative but was put in dropplet precautions Hospital Course - Lab Results Lab Results: Micro Results 11/13/18 01:50 Blood Blood Culture - Preliminary NO GROWTH AFTER 3 DAYS 11/13/18 01:30 Blood Blood Culture - Preliminary NO GROWTH AFTER 3 DAYS 11/13/18 03:37 Urine Urine Culture - Final No Growth (<1,000 CFU/ML) Most Recent Lab Values WBC 3.4 10^3/uL (4.5-11.0) L 11/16/18 07:20 RBC 3.91 10^6/uL (3.5-6.1) 11/16/18 07:20 Hgb 11.5 g/dL (12.0-16.0) L 11/16/18 07:20 Hct 34.4 % (36.0-48.0) L 11/16/18 07:20 MCV 88.0 fl (80.0-105.0) 11/16/18 07:20 MCH 29.4 pg (25.0-35.0) 11/16/18 07:20 MCHC 33.4 g/dl (31.0-37.0) 11/16/18 07:20 RDW 13.1 % (11.5-14.5) 11/16/18 07:20 Plt Count 202 10^3/uL (120.0-450.0) 11/16/18 07:20 MPV 8.3 fl (7.0-11.0) 11/16/18 07:20 Gran % 53.2 % (50.0-68.0) 11/16/18 07:20 Lymph % (Auto) 30.6 % (22.0-35.0) 11/16/18 07:20 [place] % (Auto) 15.9 % (1.0-6.0) H 11/16/18 07:20 Eos % (Auto) 0.3 % (1.5-5.0) L 11/16/18 07:20 Baso % (Auto) 0.0 % (0.0-3.0) 11/16/18 07:20 Gran # 1.81 (1.4-6.5) 11/16/18 07:20 Lymph # (Auto) 1.0 (1.2-3.4) L 11/16/18 07:20 [place] # (Auto) 0.5 (0.1-0.6) 11/16/18 07:20 Eos # (Auto) 0.0 (0.0-0.7) 11/16/18 07:20 Baso # (Auto) 0.00 K/mm3 (0.0-2.0) 11/16/18 07:20 Retic Count 0.84 % (0.5-1.5) 11/13/18 06:50 Sodium 135 mmol/L (132-148) 11/16/18 07:20 Potassium 3.7 mmol/L (3.6-5.0) 11/16/18 07:20 Chloride 106 mmol/L (98-107) 11/16/18 07:20 Carbon Dioxide 24 mmol/L (21-33) 11/16/18 07:20 Anion Gap 9 (10-20) L 11/16/18 07:20 BUN 3 mg/dL (7-21) L 11/16/18 07:20 Creatinine 0.4 mg/dl (0.7-1.2) L 11/16/18 07:20 Est GFR ( Amer) > 60 11/16/18 07:20 Est GFR (Non-Af Amer) > 60 11/16/18 07:20 POC Glucose (mg/dL) 103 mg/dL (65-110) 11/16/18 11:00 Random Glucose 100 mg/dL (70-110) 11/16/18 07:20 Hemoglobin A1c 5.8 % (4.2-6.5) 11/14/18 07:30 Calcium 7.9 mg/dL (8.4-10.5) L 11/16/18 07:20 Phosphorus 3.3 mg/dL (2.5-4.5) 11/16/18 07:20 Magnesium 2.1 mg/dL (1.7-2.2) 11/16/18 07:20 Iron 22 ug/dL (45-180) L 11/13/18 06:50 TIBC 231 ug/dL (265-497) L 11/13/18 06:50 % Saturation 10 % (20-55) L 11/13/18 06:50 Transferrin 162.81 mg/dL (206-381) L 11/13/18 06:50 Lizzette Transferrin Receptr 0.74 mg/L (0.76-1.76) L 11/13/18 06:50 Ferritin 519.0 ng/mL 11/13/18 06:50 Total Bilirubin 0.4 mg/dL (0.2-1.3) 11/16/18 07:20 AST 41 U/L (14-36) H 11/16/18 07:20 ALT 38 U/L (7-56) 11/16/18 07:20 Alkaline Phosphatase 56 U/L (38-126) 11/16/18 07:20 Lactate Dehydrogenase 378 U/L (333-699) 11/12/18 23:15 Total Creatine Kinase 67 U/L (35-230) 11/12/18 23:15 Troponin I < 0.01 ng/mL 11/12/18 23:15 Total Protein 6.4 g/dL (5.8-8.3) 11/16/18 07:20 Albumin 3.4 g/dL (3.0-4.8) 11/16/18 07:20 Globulin 3.0 gm/dL 11/16/18 07:20 Albumin/Globulin Ratio 1.1 (1.1-1.8) 11/16/18 07:20 Triglycerides 98 mg/dL (35-160) 11/14/18 07:30 Cholesterol 95 mg/dL (130-200) L 11/14/18 07:30 LDL Cholesterol Direct 50 mg/dL (0-129) 11/14/18 07:30 HDL Cholesterol 28 mg/dL (29-60) L 11/14/18 07:30 Lipase 97 U/L (23-300) 11/12/18 23:15 Vitamin B12 596 pg/mL (239-931) 11/13/18 06:50 Folate 15.7 ng/mL 11/13/18 06:50 Influenza Typ A,B (EIA) Negative for flu a/b (NEGATIVE) 11/12/18 23:15 Attending/Attestation - Attestation I have personally seen and examined this patient.: Yes I have fully participated in the care of the patient.: Yes I have reviewed all pertinent clinical information, including history, physical exam and plan: Yes
--- NOTE | 2018-11-16 15:52 | CP.PCM.PN ---
Subjective - Date & Time of Evaluation Date of Evaluation: 11/16/18 Time of Evaluation: 10:35 - Subjective Subjective: Patient is feeling better, no fevers, no more abdominal pain, no rhinorrhea, no sore throat, no body aches. Objective - Vital Signs/Intake and Output Vital Signs (last 24 hours): Temp Pulse Resp BP Pulse Ox 95.7 F L 66 18 150/80 100 11/16/18 06:00 11/16/18 09:29 11/16/18 06:00 11/16/18 09:29 11/16/18 06:00 Intake and Output: 11/16/18 11/16/18 06:59 18:59 Intake Total 960 Balance 960 - Medications Medications: Current Medications Acetaminophen (Tylenol 325mg Tab) 650 mg PO Q4H PRN PRN Reason: Fever >100.4 F Last Admin: 11/15/18 06:29 Dose: 650 mg Albuterol/Ipratropium (Duoneb 3 Mg/0.5 Mg (3 Ml) Ud) 3 ml IH Q6H PRN PRN Reason: Shortness of Breath Last Admin: 11/16/18 07:28 Dose: 3 ml Amlodipine Besylate (Norvasc) 5 mg PO QAM [facility] Last Admin: 11/16/18 09:29 Dose: 5 mg Amoxicillin/Clavulanate Potassium (Augmentin 875 Mg-125 Mg Tab) 1 tab PO Q12 [facility]; Protocol Stop: 11/25/18 13:51 Last Admin: 11/16/18 09:29 Dose: 1 tab Arformoterol Tartrate (Brovana) 15 mcg IH [id number] [facility] Last Admin: 11/16/18 07:27 Dose: 15 mcg Aspirin (Aspirin Chewable) 81 mg PO DAILY [facility] Last Admin: 11/16/18 09:33 Dose: 81 mg Atorvastatin Calcium (Lipitor) 10 mg PO QPM [facility] Last Admin: 11/15/18 17:09 Dose: 10 mg Benzonatate (Tessalon Perles) 100 mg PO TID PRN PRN Reason: Cough Last Admin: 11/14/18 15:01 Dose: 100 mg Budesonide (Pulmicort Respules) 1 mg IH [id number] [facility] Last Admin: 11/16/18 07:28 Dose: 1 mg Calcium/Vitamin D (Oscal-D 250 Mg-125 Units Tab) 1 tab PO DAILY [facility] Last Admin: 11/16/18 09:34 Dose: 1 tab Dextrose (Dextrose 50% Inj) 0 ml IV STAT PRN; Protocol PRN Reason: Hypoglycemia Protocol Docusate Sodium (Colace) 100 mg PO DAILY [facility] Last Admin: 11/16/18 09:33 Dose: 100 mg Dextrose (Dextrose 5% In Water 1000 Ml) 1,000 mls @ 0 mls/hr IV .Q0M PRN; Protocol PRN Reason: Hypoglycemia Protocol Potassium Phosphate 30 mmole/ (Dextrose/Sodium Chloride) 1,010 mls @ 80 mls/hr IV .[id number] [facility] Last Admin: 11/15/18 23:01 Dose: 80 mls/hr Insulin Human Regular (Humulin R Low) 0 units SC ACHS [facility]; Protocol Last Admin: 11/16/18 11:30 Dose: Not Given Magnesium Hydroxide (Milk Of Magnesia) 30 ml PO DAILY PRN PRN Reason: Constipation Last Admin: 11/15/18 17:10 Dose: 30 ml Metoprolol Succinate (Toprol Xl) 12.5 mg PO DAILY [facility] Last Admin: 11/16/18 09:29 Dose: 12.5 mg Ondansetron HCl (Zofran Inj) 4 mg IVP Q6H PRN PRN Reason: Nausea/Vomiting Last Admin: 11/13/18 19:45 Dose: 4 mg Oseltamivir Phosphate (Tamiflu Cap) 75 mg PO BID [facility]; Protocol Stop: 11/18/18 14:03 Last Admin: 11/16/18 09:28 Dose: 75 mg Pantoprazole Sodium (Protonix Ec Tab) 40 mg PO ACB [facility] Polyethylene Glycol (Miralax) 17 gm PO DAILY [facility] Last Admin: 11/16/18 09:34 Dose: 17 gm - Labs Labs: 11/16/18 07:20 11/16/18 07:20 - Constitutional Appears: Chronically Ill - Head Exam Head Exam: NORMAL INSPECTION - Neck Exam Neck Exam: absent: Lymphadenopathy, Meningismus - Respiratory Exam Respiratory Exam: Decreased Breath Sounds - Cardiovascular Exam Cardiovascular Exam: +S1, +S2 - GI/Abdominal Exam GI & Abdominal Exam: Soft. absent: Tenderness Assessment and Plan - Assessment and Plan (Free Text) Plan: Assessment Sepsis due to acute sigmoid diverticulitis R/O systemic viral illness with Influenza DM asthma CAD S/P PCI Plan continue Augmentin (day 4) for up to [address] A/P continue Tamiflu to complete 5 days of therapy (Day 4 today)
--- NOTE | 2018-11-16 16:42 | CP.PCM.PCO ---
Physician Communication Note - Physician Communication Note Physician Communication Note: + BM(No Pain)/Rx Diet-PO AB/No surgery needed/Office f/u
[2018-11-17] MEDS ORDERED: Pantoprazole 40 mg EC Tab PO SCH (07:30)
== END 2018-11-16 16:38 | disposition home or self-care (01) | DRG 872 ==
LOC: ED 21:22 → ERH 11-13 02:26 → 5RSO 11-13 07:03
PROVIDERS: ADMIT Internal Medicine; ATTEND Internal Medicine
DX: A41.9 Sepsis, unspecified organism (principal); K57.32 Diverticulitis of large intestine without perforation or abscess without bleeding; E11.9 Type 2 diabetes mellitus without complications; I10 Essential (primary) hypertension; I25.10 Atherosclerotic heart disease of native coronary artery without angina pectoris; K59.09 Other constipation; J45.909 Unspecified asthma, uncomplicated; E78.5 Hyperlipidemia, unspecified; K44.9 Diaphragmatic hernia without obstruction or gangrene; E87.6 Hypokalemia; E83.51 Hypocalcemia; Z85.3 Personal history of malignant neoplasm of breast; Z90.13 Acquired absence of bilateral breasts and nipples; Z88.5 Allergy status to narcotic agent; Z95.5 Presence of coronary angioplasty implant and graft

== ENCOUNTER 2018-12-10 05:58 | Outpatient (CLI) | payer MEDICARE | END 2018-12-10 05:59 | disposition home or self-care (01) | LOC: CARDIO 05:58 | DX: I25.10 Atherosclerotic heart disease of native coronary artery without angina pectoris (principal) ==

== ENCOUNTER 2019-03-15 09:42 | Outpatient (CLI) | payer MEDICARE | END 2019-03-15 09:43 | disposition home or self-care (01) | LOC: RAD 09:42 | DX: C50.311 Malignant neoplasm of lower-inner quadrant of right female breast (principal) ==